=== PATIENT | male | born 1940 | race Caucasian/White ===

== ENCOUNTER 2017-10-10 10:40 | Inpatient (IN) | payer OTHER ==
[2017-10-10] MEDS ORDERED: DUONEB 0.5 MG/3 MG ONE (11:37)
[2017-10-10 11:40] VITALS: BMI 25.1
[2017-10-10] MEDS ORDERED: DUONEB 0.5 MG/3 MG NEB SCH (12:00)
--- NOTE | 2017-10-10 12:27 | RAD ---
Examination: Chest, PA and lateral views History: Pneumonia and cough SOB Findings: The heart is borderline enlarged with arteriosclerotic aorta. There are bilateral interstit ial infiltrates present. No consolidation, mass or pneumothorax is seen. Small pleural effusions are noted at the costophrenic sulci. Impression: Cardiac prominence with bilateral interstitial infiltrates and small pleural effusions. T he findings are most compatible with CHF and pulmonary edema although a multi lobar inflammatory proc ess could produce similar findings. Correlate clinically with follow-up. Reported By:
[2017-10-10 12:34] LABS: BASOPHILS % (AUTO) 0.7 % (0.2-1.0); EOSINOPHILS # (AUTO) 0.2 x10^3/uL (0.0-0.2); EOSINOPHILS % (AUTO) 2.7 % (0.9-2.9); HEMATOCRIT 30.2 % (42.0-54.0); HEMOGLOBIN 9.8 g/dL (13.5-18.0); LYMPHOCYTES # (AUTO) 1.5 X10^3/uL (1.3-2.9); LYMPHOCYTES % (AUTO) 21.1 % (21.0-51.0); MEAN CORPUSCULAR HEMOGLOBIN 27.8 pg (27.0-34.0); MEAN CORPUSCULAR HGB CONC 32.5 g/dL (33.0-35.0); MEAN CORPUSCULAR VOLUME 85.5 fL (80.0-100.0); MEAN PLATELET VOLUME 7.9 fL (7.4-11.0); MONOCYTES # (AUTO) 0.7 x10^3/uL (0.3-0.8); MONOCYTES % (AUTO) 9.4 % (0.0-13.0); NEUTROPHILS # (AUTO) 4.6 x10^3/uL (2.2-4.8); NEUTROPHILS % (AUTO) 66.1 % (42.0-75.0); PLATELET COUNT 214 X10^3/uL (150.0-450.0); RED BLOOD COUNT 3.54 X10^6/uL (4.7-6.0); RED CELL DISTRIBUTION WIDTH 16.5 % (11.6-16.5)
[2017-10-10 12:36] LABS: ALANINE AMINOTRANSFERASE 31 Units/L (12-78); ALBUMIN 3.5 g/dL (3.4-5.0); ALKALINE PHOSPHATASE 46 Units/L (46-116); ASPARTATE AMINO TRANSFERASE 25 Units/L (15-37); BLOOD UREA NITROGEN 23 mg/dL (7-18); CALCIUM 8.9 mg/dL (8.5-10.1); CARBON DIOXIDE 25.5 mmol/L (21-32); CHLORIDE 102 mmol/L (98-107); COR NA(FOR HYPERGLY) 138 mmol/L (136-145); CREATININE 1.14 mg/dL (0.70-1.30); SODIUM 136 mmol/L (136-145); TOTAL PROTEIN 7.4 g/dL (6.4-8.2); eGFR BLACK RACES > 60 (>60); eGFR NON BLACK RACES > 60 (>60)
[2017-10-10] MEDS: FORTAZ or TAZICEF INJ 1 GM in NS 50 ML IV + SPIKE MINIBAG* 50 ML IV SCH ×3 (13:04→21:00)
[2017-10-10] MEDS: LEVAQUIN PREMIX IV 750 MG 750 MG/150 ML BAG IV SCH (13:04)
[2017-10-10] MEDS: NS 1/2 1000 ML IV 1,000 ML IV SCH (13:04)
[2017-10-10] MEDS: TUSSIONEX PENNKINETIC SUSP PO PRN (13:09)
[2017-10-10] MEDS: MUCINEX DM PO SCH ×2 (13:14→20:21)
[2017-10-10] MEDS: DUONEB 0.5 MG/3 MG NEB SCH ×3 (15:38→20:00)
[2017-10-10] MEDS ORDERED: GLUCOPHAGE ONE (20:10)
[2017-10-10] MEDS: ZOCOR TAB 40 MG PO SCH (20:20)
[2017-10-10] MEDS: GLUCOPHAGE PO SCH (20:20)
[2017-10-10] MEDS: DIABETA PO SCH (21:00)
[2017-10-11] MEDS: DUONEB 0.5 MG/3 MG NEB SCH ×5 (00:51→20:23)
[2017-10-11] MEDS ORDERED: NS 1/2 1000 ML IV 1,000 ML IV ONE (05:37)
[2017-10-11] MEDS: DIABETA PO SCH ×3 (05:42→21:01)
[2017-10-11] MEDS: NS 1/2 1000 ML IV 1,000 ML IV SCH (05:42)
[2017-10-11] MEDS: FORTAZ or TAZICEF INJ 1 GM in NS 50 ML IV + SPIKE MINIBAG* 50 ML IV SCH ×3 (05:42→21:04)
[2017-10-11] MEDS: TUSSIONEX PENNKINETIC SUSP PO PRN (06:19)
[2017-10-11 06:21] LABS: BASOPHILS % (AUTO) 0.3 % (0.2-1.0); EOSINOPHILS # (AUTO) 0.1 x10^3/uL (0.0-0.2); EOSINOPHILS % (AUTO) 1.3 % (0.9-2.9); HEMATOCRIT 26.8 % (42.0-54.0); HEMOGLOBIN 8.9 g/dL (13.5-18.0); LYMPHOCYTES # (AUTO) 1.8 X10^3/uL (1.3-2.9); LYMPHOCYTES % (AUTO) 23.6 % (21.0-51.0); MEAN CORPUSCULAR HEMOGLOBIN 27.7 pg (27.0-34.0); MEAN CORPUSCULAR HGB CONC 33.4 g/dL (33.0-35.0); MEAN CORPUSCULAR VOLUME 82.9 fL (80.0-100.0); MEAN PLATELET VOLUME 7.9 fL (7.4-11.0); MONOCYTES # (AUTO) 0.8 x10^3/uL (0.3-0.8); MONOCYTES % (AUTO) 9.8 % (0.0-13.0); NEUTROPHILS # (AUTO) 5.1 x10^3/uL (2.2-4.8); PLATELET COUNT 208 X10^3/uL (150.0-450.0); RED BLOOD COUNT 3.23 X10^6/uL (4.7-6.0); RED CELL DISTRIBUTION WIDTH 16.3 % (11.6-16.5); WHITE BLOOD COUNT 7.8 X10^3/uL (3.6-10.0)
[2017-10-11 06:41] LABS: ALANINE AMINOTRANSFERASE 29 Units/L (12-78); ALBUMIN 3.2 g/dL (3.4-5.0); ALKALINE PHOSPHATASE 42 Units/L (46-116); ASPARTATE AMINO TRANSFERASE 20 Units/L (15-37); BLOOD UREA NITROGEN 18 mg/dL (7-18); CALCIUM 8.2 mg/dL (8.5-10.1); CARBON DIOXIDE 22.5 mmol/L (21-32); CHLORIDE 97 mmol/L (98-107); COR CA(FOR HYPOALB) 8.8 mg/dL (8.5-10.1); CREATININE 1.06 mg/dL (0.70-1.30); SODIUM 130 mmol/L (136-145); eGFR BLACK RACES > 60 (>60); eGFR NON BLACK RACES > 60 (>60)
[2017-10-11] MEDS ORDERED: GLUCOPHAGE ONE ×2 (08:05→20:26)
[2017-10-11] MEDS: GLUCOPHAGE PO SCH ×2 (08:13→20:57)
[2017-10-11] MEDS: LEVAQUIN PREMIX IV 750 MG 750 MG/150 ML BAG IV SCH (08:14)
[2017-10-11] MEDS: MUCINEX DM PO SCH ×2 (08:14→21:05)
[2017-10-11] MEDS: ZESTRIL TAB 10 MG PO SCH (08:14)
[2017-10-11] MEDS: LASIX IVP SCH ×2 (10:50→20:57)
[2017-10-11] MEDS: SNACK - Diabetic Appropriate PO SCH ×2 (10:50→21:06)
[2017-10-11] MEDS ORDERED: ZOFRAN INJ 4 MG VIAL IVP PRN (11:44)
--- NOTE | 2017-10-11 12:43 | PCM.PROG ---
Progress Note - Progress Note for Day of Date: 10/11/17 - Subjective Subjective: WAS ADMITTED FOR BRONCHOPNEUMONIA. A CHEST XRAY THAT WAS OBTAINED ON REPORTS THAT FINDINGS FROM CHEST XRAY ARE MOST COMPATIBLE WITH CHF AND PULMONARY EDEMA ALTHOUGH MULTI LOBAR INFLAMMATORY PROCESS COULD PRODUCE SIMILAR FINDINGS. TODAY, HE IS ALERT AND ORIENTED, SITTING UP IN BED ON MORNING ROUNDS. HE IS NOTED WITH COMPLAINTS OF NON-PRODUCTIVE COUGH AND SHORNTESS OF BREATH. ON EXAMINATION, HEART IS REGULAR IN RATE AND RHYTHM. HE IS NOTED TO BE UTILIZING OXYGEN VIA NASAL CANNULA. LUNGS ARE NOTED WITH SCATTERED WHEEZING AND RHONCHI BILATERALLY TO AUSCULTAION. ABDOMEN IS ROUND, SOFT, AND NON-TENDER WITH NORMAL BOWEL SOUNDS NOTED IN ALL QUADRANTS. GOOD RANGE OF MOTION IS NOTED IN ALL EXTREMITIES. THERE IS 1+ PITTING EDEMA NOTED TO BILATERAL LOWER EXTREMITIES. HIS VITAL SIGNS THIS MORNING ARE 98.6-96-20-97%-128/72. ABNORMAL LAB VALUES INCLUDE THE FOLLOWING: RBC 3.23, HGB 8.9, HCT 26.8, SODIUM 130, CHLORIDE 97, CALCIUM 8.2, IRON 21, ALK PHOS 42, BNP 567, ALBUMIN 3.2, A/G RATIO 0.8, VITAMIN B12 185. TODAY, WE WILL OBTAIN AN ECHOCARDIOGRAM. WE WILL DISCONTINUE IV FLUIDS AND RESTRICT PO FLUID INTAKE TO LESS THAN 1,000ML/DAY. WE WILL ORDER FOR HIM TO WEAR THE BIPAP. WE PLAN TO START LASIX 40MG IV Q12H. OTHERWISE, WE WILL FOLLOW UP WITH AM LABS AND CHEST XRAY AND CONTINUE TO MONITOR PATIENT. - Past Medical Family Social History Past Med/Fam/Surg Hx: No changes since H&P Allergies: Allergies No Known Drug Allergies Allergy (Verified 10/10/17 11:40) - Review of Systems ROS: No change since H&P - Vital Signs and I&O's Vital Signs: Temperature 98.1 F Pulse Rate [Left Brachial] 99 Pulse Rate 94 Respiratory Rate 24 Blood Pressure [Left Arm] 131/74 O2 Sat by Pulse Oximetry 93 Intake and Output: Intake & Output 10/09/17 10/10/17 10/11/17 10/12/17 11:59 11:59 11:59 11:59 Intake Total 3247 Balance 3247 - Physical Exam Oriented: Normal Eyes: Normal. negative: Blurred Vision, Diplopia, Discharge, Pain, Redness, Photophobia, Other Ear: Normal. negative: Right, Left, Swelling, Ecchymosis, Hemotypanum, Abrasion , Laceration Nose: Normal Throat: Dry Respiratory: Normal, Right, Left, Generalized, Wheezes, Rhonchi Cardiovascular: Edema (BILATERAL LOWER EXTREMITIES ) : Normal Auscultation: Bowel Sounds: Normal Palpation: Normal Tenderness: Normal Skin: Normal. negative: Decreased Turgur, Rash, Papular, Macular, Maculopapular , Vesicular, Pustular, Petechial, Red, Tender, Hot, Diaphoresis, Wound, Bruising , Ecchymosis, Other Musculoskeletal: Normal Psychiatric: Normal Mood Description: Calm Affect: Normal Speech Pattern: Clear, Appropriate - Laboratory and Diagnostics Result Diagrams: 10/11/17 05:21 10/11/17 05:21 Labs: 10/10/17 11:45 Sputum - Expectorated Sputum Sputum Culture - Preliminary 10/10/17 11:45 Sputum - Expectorated Sputum - Final Laboratory WBC 7.8 X10^3/uL (3.6-10.0) 10/11/17 05:21 RBC 3.23 X10^6/uL (4.7-6.0) L 10/11/17 05:21 Hgb 8.9 g/dL (13.5-18.0) L 10/11/17 05:21 Hct 26.8 % (42.0-54.0) L 10/11/17 05:21 MCV 82.9 fL (80.0-100.0) 10/11/17 05:21 MCH 27.7 pg (27.0-34.0) 10/11/17 05:21 MCHC 33.4 g/dL (33.0-35.0) 10/11/17 05:21 RDW 16.3 % (11.6-16.5) 10/11/17 05:21 Plt Count 208 X10^3/uL (150.0-450.0) 10/11/17 05:21 MPV 7.9 fL (7.4-11.0) 10/11/17 05:21 Neut % 65.0 % (42.0-75.0) 10/11/17 05:21 Lymph % 23.6 % (21.0-51.0) 10/11/17 05:21 [place] % 9.8 % (0.0-13.0) 10/11/17 05:21 Eos % 1.3 % (0.9-2.9) 10/11/17 05:21 Baso % 0.3 % (0.2-1.0) 10/11/17 05:21 Neut # 5.1 x10^3/uL (2.2-4.8) H 10/11/17 05:21 Lymph # 1.8 X10^3/uL (1.3-2.9) 10/11/17 05:21 [place] # 0.8 x10^3/uL (0.3-0.8) 10/11/17 05:21 Eos # 0.1 x10^3/uL (0.0-0.2) 10/11/17 05:21 Baso # 0.0 X10^3/uL (0.0-0.1) 10/11/17 05:21 Absolute Nucleated RBC 0.0 /100WBC 10/11/17 05:21 Sodium 130 mmol/L (136-145) L 10/11/17 05:21 Corrected Sodium TNP 10/11/17 05:21 Potassium 4.2 mmol/L (3.5-5.1) 10/11/17 05:21 Chloride 97 mmol/L (98-107) L 10/11/17 05:21 Carbon Dioxide 22.5 mmol/L (21-32) 10/11/17 05:21 BUN 18 mg/dL (7-18) 10/11/17 05:21 Creatinine 1.06 mg/dL (0.70-1.30) 10/11/17 05:21 Est GFR (MDRD) Af Amer > 60 (>60) 10/11/17 05:21 Est GFR (MDRD) Non-Af > 60 (>60) 10/11/17 05:21 Glucose 95 mg/dL (65-99) 10/11/17 05:21 POC Glucose (mg/dL) 184 mg/dL (65-99) H 10/11/17 10:52 Calcium 8.2 mg/dL (8.5-10.1) L 10/11/17 05:21 Corrected Calcium 8.8 mg/dL (8.5-10.1) 10/11/17 05:21 Iron 21 ug/dL (50-175) L 10/11/17 05:21 TIBC 294 ug/dL (250-450) 10/11/17 05:21 Transferrin 227 mg/dL (202-364) 10/11/17 05:21 Ferritin 147 ng/mL (26-388) 10/11/17 05:21 Total Bilirubin 0.70 mg/dL (0.2-1.0) 10/11/17 05:21 AST 20 Units/L (15-37) 10/11/17 05:21 ALT 29 Units/L (12-78) 10/11/17 05:21 Alkaline Phosphatase 42 Units/L (46-116) L 10/11/17 05:21 B-Natriuretic Peptide 567 pg/mL (0-79) H* 10/11/17 05:21 Total Protein 7.0 g/dL (6.4-8.2) 10/11/17 05:21 Albumin 3.2 g/dL (3.4-5.0) L 10/11/17 05:21 Globulin 3.8 g/dL (2.5-4.5) 10/11/17 05:21 Albumin/Globulin Ratio 0.8 Ratio (1.1-2.1) L 10/11/17 05:21 Vitamin B12 185 pg/mL (193-986) L 10/11/17 05:21 Folate 15.6 ng/mL (>8.6) 10/11/17 05:21 - Plan (1) Bronchopneumonia Status: Acute Plan: CONTINUE IV ANTIBIOTICS, CONTINUE NEB TX, MONITOR LABS AND CHEST XRAY (2) Acute on chronic congestive heart failure Status: Acute Qualifiers: Congestive heart failure type: unspecified congestive heart failure type Qualified Code(s): I50.9 - Heart failure, unspecified Plan: OBTAIN ECHO, LASIX 40MG IV Q12H, MONITOR LABS AND CHEST XRAY
--- NOTE | 2017-10-11 20:20 | DR.UPDATE ---
H&P Update History and Physical Update: WAS SEEN IN THE OFFICE ON 10/10/17. A H&P WAS COMPLETED PRIOR TO ADMISSION. PATIENT HAS BEEN SEEN AND EXAMINED WITH NO CHANGES NOTED TO H&P. Changes noted: NO Yes with the following:
[2017-10-11] MEDS: ZOCOR TAB 40 MG PO SCH (20:57)
[2017-10-11] MEDS: MAALOX or MYLANTA PO PRN (21:05)
[2017-10-12] MEDS: DUONEB 0.5 MG/3 MG NEB SCH ×6 (00:45→21:31)
[2017-10-12] MEDS ORDERED: MAALOX or MYLANTA ONE (05:18)
[2017-10-12] MEDS: MAALOX or MYLANTA PO PRN ×2 (05:21→11:25)
[2017-10-12 05:41] LABS: BASOPHILS % (AUTO) 0.2 % (0.2-1.0); EOSINOPHILS % (AUTO) 0.5 % (0.9-2.9); HEMATOCRIT 27.2 % (42.0-54.0); HEMOGLOBIN 9.4 g/dL (13.5-18.0); LYMPHOCYTES # (AUTO) 1.7 X10^3/uL (1.3-2.9); LYMPHOCYTES % (AUTO) 20.7 % (21.0-51.0); MEAN CORPUSCULAR HGB CONC 34.5 g/dL (33.0-35.0); MEAN CORPUSCULAR VOLUME 81.3 fL (80.0-100.0); MEAN PLATELET VOLUME 7.5 fL (7.4-11.0); MONOCYTES # (AUTO) 0.8 x10^3/uL (0.3-0.8); MONOCYTES % (AUTO) 10.4 % (0.0-13.0); NEUTROPHILS # (AUTO) 5.4 x10^3/uL (2.2-4.8); NEUTROPHILS % (AUTO) 68.2 % (42.0-75.0); PLATELET COUNT 218 X10^3/uL (150.0-450.0); RED BLOOD COUNT 3.34 X10^6/uL (4.7-6.0)
[2017-10-12] MEDS ORDERED: NS 250 ML IV 250 ML IV PRN (05:41)
--- NOTE | 2017-10-12 05:46 | RAD ---
Chest, AP portable Indication: Shortness of breath Comparison: 10/10/2017 Findings: Borderline cardiac silhouette enlargement is unchanged. Basilar interstitial thickening is improved from prior. No dense infiltrate or large effusion. Impression: Improving interstitial edema. Reported By:
[2017-10-12] MEDS ORDERED: NS 250 ML IV 250 ML IV ONE (05:52)
[2017-10-12] MEDS: FORTAZ or TAZICEF INJ 1 GM in NS 50 ML IV + SPIKE MINIBAG* 50 ML IV SCH ×3 (05:57→21:45)
[2017-10-12] MEDS: DIABETA PO SCH ×3 (05:57→21:47)
[2017-10-12 06:03] LABS: ALANINE AMINOTRANSFERASE 30 Units/L (12-78); ALBUMIN 3.2 g/dL (3.4-5.0); ALKALINE PHOSPHATASE 46 Units/L (46-116); ASPARTATE AMINO TRANSFERASE 26 Units/L (15-37); BLOOD UREA NITROGEN 22 mg/dL (7-18); CALCIUM 8.3 mg/dL (8.5-10.1); CARBON DIOXIDE 26.4 mmol/L (21-32); CHLORIDE 88 mmol/L (98-107); COR CA(FOR HYPOALB) 8.9 mg/dL (8.5-10.1); TOTAL PROTEIN 7.1 g/dL (6.4-8.2); eGFR BLACK RACES > 60 (>60); eGFR NON BLACK RACES > 60 (>60)
[2017-10-12 06:08] LABS: SODIUM 124 mmol/L (136-145)
[2017-10-12 06:38] LABS: B-TYPE NATRIURETIC PEPTIDE 873 pg/mL (0-79)
[2017-10-12] MEDS ORDERED: GLUCOPHAGE ONE (08:49)
[2017-10-12] MEDS: LEVAQUIN PREMIX IV 750 MG 750 MG/150 ML BAG IV SCH (09:00)
[2017-10-12] MEDS: ZESTRIL TAB 10 MG PO SCH (09:00)
[2017-10-12] MEDS: MUCINEX DM PO SCH ×2 (09:01→21:43)
[2017-10-12] MEDS: GLUCOPHAGE PO SCH ×2 (09:01→21:46)
[2017-10-12] MEDS ORDERED: LANOXIN PO ONE (09:51)
[2017-10-12] MEDS: HEMOCYTE-PLUS PO SCH (10:26)
[2017-10-12] MEDS: ALDACTONE TAB 25 MG PO SCH (10:26)
[2017-10-12 10:49] LABS: ABG ALLEN TEST POS; ABG BASE EXCESS 2.6 mmol/L (-2.0-2.0); ABG HCO3 26.2 mmol/L (22-26)
--- NOTE | 2017-10-12 13:05 | PCM.PROG ---
Progress Note - Progress Note for Day of Date: 10/12/17 - Subjective Subjective: WAS ADMITTED FOR BRONCHOPNEUMONIA AND CONGESTIVE HEART FAILURE. TODAY, HE IS ALERT AND ORIENTED, SITTING UP ON SIDE OF BED ON MORNING ROUNDS. HE IS CURRENTLY RECEIVING A BREATHING TREATMENT. HE CONTINUES WITH COMPLAINTS OF NON-PRODUCTIVE COUGH AND SHORNTESS OF BREATH. ON EXAMINATION, HEART IS REGULAR IN RATE AND RHYTHM. HE IS NOTED TO BE UTILIZING OXYGEN VIA NASAL CANNULA. LUNGS CONTINUE WITH SCATTERED WHEEZING AND RHONCHI BILATERALLY TO AUSCULTAION. ABDOMEN IS ROUND, SOFT, AND NON-TENDER WITH NORMAL BOWEL SOUNDS NOTED IN ALL QUADRANTS. GOOD RANGE OF MOTION IS NOTED IN ALL EXTREMITIES. 1+ PITTING EDEMA REMAINS TO BILATERAL LOWER EXTREMITIES. HIS VITAL SIGNS THIS MORNING ARE 97.7-98-20-95%-109/70. ABNORMAL LAB VALUES INCLUDE THE FOLLOWING: RBC 3.34, HGB 9.4, HCT 27.2, SODIUM 124, CHLORIDE 88, BUN 22, CALCIUM 8.3,BNP 873, ALBUMIN 3.2, A/G RATIO 0.8. PRELIMINARY BLOOD CULTURES REPORT NO GROWTH. SPUTUM CULTURE REPORTS NORMAL ARIELLE WITH GROWTH OF YEAST. AN ABG REPORTED PH 7.470, HC03 23.2, PC02 36, BASE EXCESS 2.6. WE OBTAINED AN ECHOCARDIOGRAM YESTERDAY. IT REPORTED AND EJECTION FRACTION OF 33%. TODAYS CHEST XRAY REPORTED IMPROVING INTERSTITIAL EDEMA. WE WILL CONTINUE LASIX 40MG IV BID, START DIGOXIN 0.25MG X 1 DOSE TODAY, THEN DIGOXIN 0.125MG DAILY STARTING TOMORROW, AND HEMOCYTE 1 CAPSULE DAILY. OTHERWISE, WE WILL FOLLOW UP WITH AM LABS AND CHEST XRAY AND CONTINUE TO MONITOR PATIENT. - Past Medical Family Social History Past Med/Fam/Surg Hx: No changes since H&P Allergies: Allergies No Known Drug Allergies Allergy (Verified 10/10/17 11:40) - Review of Systems ROS: No change since H&P - Vital Signs and I&O's Vital Signs: Temperature 97 F Pulse Rate [Left Brachial] 94 Pulse Rate 100 Respiratory Rate 18 Blood Pressure [Left Arm] 125/65 O2 Sat by Pulse Oximetry 100 Intake and Output: Intake & Output 10/10/17 10/11/17 10/12/17 10/13/17 11:59 11:59 11:59 11:59 Intake Total 3247 2619 Output Total 2700 Balance 3247 -81 - Physical Exam Oriented: Normal Eyes: Normal. negative: Blurred Vision, Diplopia, Discharge, Pain, Redness, Photophobia, Other Ear: Normal. negative: Right, Left, Swelling, Ecchymosis, Hemotypanum, Abrasion , Laceration Nose: Normal Throat: Dry Respiratory: Normal, Right, Left, Generalized, Wheezes, Rhonchi Cardiovascular: Edema (BILATERAL LOWER EXTREMITIES ) : Normal Auscultation: Bowel Sounds: Normal Palpation: Normal Tenderness: Normal Skin: Normal. negative: Decreased Turgur, Rash, Papular, Macular, Maculopapular , Vesicular, Pustular, Petechial, Red, Tender, Hot, Diaphoresis, Wound, Bruising , Ecchymosis, Other Musculoskeletal: Normal Psychiatric: Normal Mood Description: Calm Affect: Normal Speech Pattern: Clear, Appropriate - Laboratory and Diagnostics Result Diagrams: 10/12/17 05:20 10/12/17 05:20 Labs: 10/10/17 11:58 Blood Blood Culture - Preliminary 10/10/17 12:05 Blood Blood Culture - Preliminary 10/10/17 11:45 Sputum - Expectorated Sputum Sputum Culture - Final 10/10/17 11:45 Sputum - Expectorated Sputum - Final Laboratory WBC 8.0 X10^3/uL (3.6-10.0) 10/12/17 05:20 RBC 3.34 X10^6/uL (4.7-6.0) L 10/12/17 05:20 Hgb 9.4 g/dL (13.5-18.0) L 10/12/17 05:20 Hct 27.2 % (42.0-54.0) L 10/12/17 05:20 MCV 81.3 fL (80.0-100.0) 10/12/17 05:20 MCH 28.0 pg (27.0-34.0) 10/12/17 05:20 MCHC 34.5 g/dL (33.0-35.0) 10/12/17 05:20 RDW 16.0 % (11.6-16.5) 10/12/17 05:20 Plt Count 218 X10^3/uL (150.0-450.0) 10/12/17 05:20 MPV 7.5 fL (7.4-11.0) 10/12/17 05:20 Neut % 68.2 % (42.0-75.0) 10/12/17 05:20 Lymph % 20.7 % (21.0-51.0) L 10/12/17 05:20 [place] % 10.4 % (0.0-13.0) 10/12/17 05:20 Eos % 0.5 % (0.9-2.9) L 10/12/17 05:20 Baso % 0.2 % (0.2-1.0) 10/12/17 05:20 Neut # 5.4 x10^3/uL (2.2-4.8) H 10/12/17 05:20 Lymph # 1.7 X10^3/uL (1.3-2.9) 10/12/17 05:20 [place] # 0.8 x10^3/uL (0.3-0.8) 10/12/17 05:20 Eos # 0.0 x10^3/uL (0.0-0.2) 10/12/17 05:20 Baso # 0.0 X10^3/uL (0.0-0.1) 10/12/17 05:20 Absolute Nucleated RBC 0.0 /100WBC 10/12/17 05:20 Sample Site Rrad 10/12/17 09:52 ABG pH 7.470 (7.35-7.45) H 10/12/17 09:52 ABG pCO2 36.0 mmHg (35.0-45.0) 10/12/17 09:52 ABG pO2 88.0 mmHg (80.0-100.0) 10/12/17 09:52 ABG HCO3 26.2 mmol/L (22-26) H 10/12/17 09:52 ABG O2 Saturation 97.0 % (90-100) 10/12/17 09:52 ABG Base Excess 2.6 mmol/L (-2.0-2.0) H 10/12/17 09:52 David Test Pos 10/12/17 09:52 A-a Gradient 17.0 mmHg 10/12/17 09:52 FiO2 21.000 10/12/17 09:52 Blood Gas Comments Kenyon well 10/12/17 09:52 Sodium 124 mmol/L (136-145) L* 10/12/17 05:20 Corrected Sodium TNP 10/12/17 05:20 Potassium 4.3 mmol/L (3.5-5.1) 10/12/17 05:20 Chloride 88 mmol/L (98-107) L 10/12/17 05:20 Carbon Dioxide 26.4 mmol/L (21-32) 10/12/17 05:20 BUN 22 mg/dL (7-18) H 10/12/17 05:20 Creatinine 1.20 mg/dL (0.70-1.30) 10/12/17 05:20 Est GFR (MDRD) Af Amer > 60 (>60) 10/12/17 05:20 Est GFR (MDRD) Non-Af > 60 (>60) 10/12/17 05:20 Glucose 97 mg/dL (65-99) 10/12/17 05:20 POC Glucose (mg/dL) 56 mg/dL (65-99) L 10/12/17 11:22 Calcium 8.3 mg/dL (8.5-10.1) L 10/12/17 05:20 Corrected Calcium 8.9 mg/dL (8.5-10.1) 10/12/17 05:20 Iron 21 ug/dL (50-175) L 10/11/17 05:21 TIBC 294 ug/dL (250-450) 10/11/17 05:21 Transferrin 227 mg/dL (202-364) 10/11/17 05:21 Ferritin 147 ng/mL (26-388) 10/11/17 05:21 Total Bilirubin 0.80 mg/dL (0.2-1.0) 10/12/17 05:20 AST 26 Units/L (15-37) 10/12/17 05:20 ALT 30 Units/L (12-78) 10/12/17 05:20 Alkaline Phosphatase 46 Units/L (46-116) 10/12/17 05:20 B-Natriuretic Peptide 873 pg/mL (0-79) H* 10/12/17 05:20 Total Protein 7.1 g/dL (6.4-8.2) 10/12/17 05:20 Albumin 3.2 g/dL (3.4-5.0) L 10/12/17 05:20 Globulin 3.9 g/dL (2.5-4.5) 10/12/17 05:20 Albumin/Globulin Ratio 0.8 Ratio (1.1-2.1) L 10/12/17 05:20 Vitamin B12 185 pg/mL (193-986) L 10/11/17 05:21 Folate 15.6 ng/mL (>8.6) 10/11/17 05:21 - Plan (1) Bronchopneumonia Status: Acute Plan: CONTINUE IV ANTIBIOTICS, CONTINUE NEB TX, MONITOR LABS AND CHEST XRAY (2) Acute on chronic congestive heart failure Status: Acute Qualifiers: Congestive heart failure type: unspecified congestive heart failure type Qualified Code(s): I50.9 - Heart failure, unspecified Plan: ALDACTONE 25MG DAILY, CONTINUE LISINOPRIL 10MG DAILY, DIGOXIN 0.25MG X 1 THEN DIGOXIN 0.125MG DAILY, LASIX 40MG IV Q12H, MONITOR LABS AND CHEST XRAY (3) Anemia Status: Acute Qualifiers: Anemia type: iron deficiency Iron deficiency anemia type: unspecified iron deficiency Qualified Code(s): D50.9 - Iron deficiency anemia, unspecified Plan: HEMOCYTE 1 CAPSULE DAILY, CONTINUE TO MONITOR
[2017-10-12] MEDS: LASIX IVP SCH ×2 (13:39→21:46)
[2017-10-12] MEDS: PROTONIX INJ 40 MG VIAL IVP SCH ×2 (14:23→21:46)
[2017-10-12] MEDS: SNACK - Diabetic Appropriate PO SCH (20:18)
[2017-10-12] MEDS: ZOCOR TAB 40 MG PO SCH (21:43)
[2017-10-13] MEDS: DUONEB 0.5 MG/3 MG NEB SCH ×5 (00:58→20:41)
[2017-10-13] MEDS: DIABETA PO SCH ×3 (06:04→21:13)
[2017-10-13] MEDS: FORTAZ or TAZICEF INJ 1 GM in NS 50 ML IV + SPIKE MINIBAG* 50 ML IV SCH ×3 (06:05→21:22)
[2017-10-13 06:09] LABS: BASOPHILS % (AUTO) 0.2 % (0.2-1.0); EOSINOPHILS % (AUTO) 0.4 % (0.9-2.9); HEMATOCRIT 27.9 % (42.0-54.0); HEMOGLOBIN 9.7 g/dL (13.5-18.0); LYMPHOCYTES # (AUTO) 1.4 X10^3/uL (1.3-2.9); LYMPHOCYTES % (AUTO) 17.5 % (21.0-51.0); MEAN CORPUSCULAR HEMOGLOBIN 27.9 pg (27.0-34.0); MEAN CORPUSCULAR HGB CONC 34.7 g/dL (33.0-35.0); MEAN CORPUSCULAR VOLUME 80.3 fL (80.0-100.0); MEAN PLATELET VOLUME 7.8 fL (7.4-11.0); MONOCYTES # (AUTO) 0.8 x10^3/uL (0.3-0.8); MONOCYTES % (AUTO) 9.5 % (0.0-13.0); NEUTROPHILS # (AUTO) 5.8 x10^3/uL (2.2-4.8); NEUTROPHILS % (AUTO) 72.4 % (42.0-75.0); PLATELET COUNT 243 X10^3/uL (150.0-450.0); RED BLOOD COUNT 3.47 X10^6/uL (4.7-6.0); RED CELL DISTRIBUTION WIDTH 16.1 % (11.6-16.5)
--- NOTE | 2017-10-13 06:09 | RAD ---
Examination: Portable AP chest History: SOB Comparison reference 10/12/2017 Findings: Continued normal heart size. Slight further improvement in the vascular congestion and inte rstitial prominence. No new abnormality noted. Impression: Additional radiographic improvement. No acute process now demonstrated. Reported By:
[2017-10-13] MEDS: MAALOX or MYLANTA PO PRN (06:14)
[2017-10-13 06:19] LABS: ALANINE AMINOTRANSFERASE 24 Units/L (12-78); ALKALINE PHOSPHATASE 41 Units/L (46-116); ASPARTATE AMINO TRANSFERASE 27 Units/L (15-37); BLOOD UREA NITROGEN 23 mg/dL (7-18); CALCIUM 8.3 mg/dL (8.5-10.1); CARBON DIOXIDE 26.8 mmol/L (21-32); CHLORIDE 88 mmol/L (98-107); COR CA(FOR HYPOALB) 9.1 mg/dL (8.5-10.1); CREATININE 1.26 mg/dL (0.70-1.30); DIGOXIN < 0.30 ng/mL (0.9-2); TOTAL PROTEIN 7.1 g/dL (6.4-8.2); eGFR BLACK RACES > 60 (>60); eGFR NON BLACK RACES 59 (>60)
[2017-10-13 06:22] LABS: SODIUM 125 mmol/L (136-145)
[2017-10-13] MEDS: ALDACTONE TAB 25 MG PO SCH (09:17)
[2017-10-13] MEDS: GLUCOPHAGE PO SCH ×2 (09:18→21:13)
[2017-10-13] MEDS: HEMOCYTE-PLUS PO SCH (09:18)
[2017-10-13] MEDS: LANOXIN PO SCH (09:19)
[2017-10-13] MEDS: MUCINEX DM PO SCH ×2 (09:21→21:14)
[2017-10-13] MEDS: LASIX IVP SCH ×2 (09:21→21:13)
[2017-10-13] MEDS: LEVAQUIN PREMIX IV 750 MG 750 MG/150 ML BAG IV SCH (09:21)
[2017-10-13] MEDS: PROTONIX INJ 40 MG VIAL IVP SCH ×2 (09:21→21:13)
[2017-10-13] MEDS: ZESTRIL TAB 10 MG PO SCH (09:25)
[2017-10-13] MEDS ORDERED: ARTIFICIAL TEARS DROPS AFFEYE PRN (19:52)
[2017-10-13] MEDS ORDERED: GLUCOPHAGE ONE (20:43)
[2017-10-13] MEDS: ZOCOR TAB 40 MG PO SCH (21:13)
[2017-10-13] MEDS: TUSSIONEX PENNKINETIC SUSP PO PRN (21:13)
[2017-10-13] MEDS: SNACK - Diabetic Appropriate PO SCH (21:22)
--- NOTE | 2017-10-13 22:03 | PCM.PROG ---
Progress Note - Progress Note for Day of Date: 10/13/17 - Subjective Subjective: WAS ADMITTED FOR BRONCHOPNEUMONIA AND CONGESTIVE HEART FAILURE. TODAY, HE IS ALERT AND ORIENTED, SITTING UP ON SIDE OF BED ON MORNING ROUNDS. HE CONTINUES WITH COMPLAINTS OF NON-PRODUCTIVE COUGH, SHORNTESS OF BREATH, AND GENERALIZED WEAKNESS. ON EXAMINATION, HEART IS REGULAR IN RATE AND RHYTHM. HE IS NOTED TO BE UTILIZING OXYGEN VIA NASAL CANNULA. LUNGS CONTINUE WITH SCATTERED WHEEZING AND RHONCHI BILATERALLY TO AUSCULTAION. ABDOMEN IS ROUND , SOFT, AND NON-TENDER WITH NORMAL BOWEL SOUNDS NOTED IN ALL QUADRANTS. GOOD RANGE OF MOTION IS NOTED IN ALL EXTREMITIES. 1+ PITTING EDEMA REMAINS TO BILATERAL LOWER EXTREMITIES. HIS VITAL SIGNS THIS MORNING ARE 97.8-83-20-99%-100 /57. ABNORMAL LAB VALUES INCLUDE THE FOLLOWING: RBC 3.47, HGB 9.7, HCT 27.9, SODIUM 125, CHLORIDE 88, BUN 23, GLUCOSE 107, CALCIUM 8.3, ALK PHOS 41, ALBUMIN 3.0. PRELIMINARY BLOOD CULTURES CONTINUE TO REPORT NO GROWTH. SPUTUM CULTURE REPORTS NORMAL ARIELLE WITH GROWTH OF YEAST. TODAYS CHEST XRAY REPORTED ADDITIONAL RADIOGRAPHIC IMPROVEMENT. NO ACUTE PROCESS NOW DEMONSTRATED. TODAY, WE WILL CONTINUE WITH CURRENT PLAN OF CARE. WE WILL FOLLOW UP WITH AM LABS AND CHEST XRAY AND CONTINUE TO MONITOR PATIENT. - Past Medical Family Social History Past Med/Fam/Surg Hx: No changes since H&P Allergies: Allergies No Known Drug Allergies Allergy (Verified 10/10/17 11:40) - Review of Systems ROS: No change since H&P - Vital Signs and I&O's Vital Signs: Temperature 97.9 F Pulse Rate [Left Brachial] 94 Pulse Rate 98 Respiratory Rate 20 Blood Pressure [Left Arm] 113/65 O2 Sat by Pulse Oximetry 99 Intake and Output: Intake & Output 10/11/17 10/12/17 10/13/17 10/14/17 11:59 11:59 11:59 11:59 Intake Total 3247 2619 1044 340 Output Total 2700 700 Balance 3247 -81 344 340 - Physical Exam Oriented: Normal Eyes: Normal. negative: Blurred Vision, Diplopia, Discharge, Pain, Redness, Photophobia, Other Ear: Normal. negative: Right, Left, Swelling, Ecchymosis, Hemotypanum, Abrasion , Laceration Nose: Normal Throat: Normal Respiratory: Normal, Right, Left, Generalized, Wheezes, Rhonchi Cardiovascular: Edema (BILATERAL LOWER EXTREMITIES ) : Normal Auscultation: Bowel Sounds: Normal Palpation: Normal Tenderness: Normal Skin: Normal. negative: Decreased Turgur, Rash, Papular, Macular, Maculopapular , Vesicular, Pustular, Petechial, Red, Tender, Hot, Diaphoresis, Wound, Bruising , Ecchymosis, Other Musculoskeletal: Normal Psychiatric: Normal Mood Description: Calm Affect: Normal Speech Pattern: Clear, Appropriate - Laboratory and Diagnostics Result Diagrams: 10/13/17 05:25 10/13/17 05:25 Labs: 10/10/17 11:58 Blood Blood Culture - Preliminary 10/10/17 12:05 Blood Blood Culture - Preliminary 10/10/17 11:45 Sputum - Expectorated Sputum Sputum Culture - Final 10/10/17 11:45 Sputum - Expectorated Sputum - Final Laboratory WBC 8.0 X10^3/uL (3.6-10.0) 10/13/17 05:25 RBC 3.47 X10^6/uL (4.7-6.0) L 10/13/17 05:25 Hgb 9.7 g/dL (13.5-18.0) L 10/13/17 05:25 Hct 27.9 % (42.0-54.0) L 10/13/17 05:25 MCV 80.3 fL (80.0-100.0) 10/13/17 05:25 MCH 27.9 pg (27.0-34.0) 10/13/17 05:25 MCHC 34.7 g/dL (33.0-35.0) 10/13/17 05:25 RDW 16.1 % (11.6-16.5) 10/13/17 05:25 Plt Count 243 X10^3/uL (150.0-450.0) 10/13/17 05:25 MPV 7.8 fL (7.4-11.0) 10/13/17 05:25 Neut % 72.4 % (42.0-75.0) 10/13/17 05:25 Lymph % 17.5 % (21.0-51.0) L 10/13/17 05:25 [place] % 9.5 % (0.0-13.0) 10/13/17 05:25 Eos % 0.4 % (0.9-2.9) L 10/13/17 05:25 Baso % 0.2 % (0.2-1.0) 10/13/17 05:25 Neut # 5.8 x10^3/uL (2.2-4.8) H 10/13/17 05:25 Lymph # 1.4 X10^3/uL (1.3-2.9) 10/13/17 05:25 Kimble # 0.8 x10^3/uL (0.3-0.8) 10/13/17 05:25 Eos # 0.0 x10^3/uL (0.0-0.2) 10/13/17 05:25 Baso # 0.0 X10^3/uL (0.0-0.1) 10/13/17 05:25 Absolute Nucleated RBC 0.0 /100WBC 10/13/17 05:25 Sample Site Rrad 10/12/17 09:52 ABG pH 7.470 (7.35-7.45) H 10/12/17 09:52 ABG pCO2 36.0 mmHg (35.0-45.0) 10/12/17 09:52 ABG pO2 88.0 mmHg (80.0-100.0) 10/12/17 09:52 ABG HCO3 26.2 mmol/L (22-26) H 10/12/17 09:52 ABG O2 Saturation 97.0 % (90-100) 10/12/17 09:52 ABG Base Excess 2.6 mmol/L (-2.0-2.0) H 10/12/17 09:52 David Test Pos 10/12/17 09:52 A-a Gradient 17.0 mmHg 10/12/17 09:52 FiO2 21.000 10/12/17 09:52 Blood Gas Comments Kenyon well 10/12/17 09:52 Sodium 125 mmol/L (136-145) L* 10/13/17 05:25 Corrected Sodium TNP 10/13/17 05:25 Potassium 3.7 mmol/L (3.5-5.1) 10/13/17 05:25 Chloride 88 mmol/L (98-107) L 10/13/17 05:25 Carbon Dioxide 26.8 mmol/L (21-32) 10/13/17 05:25 BUN 23 mg/dL (7-18) H 10/13/17 05:25 Creatinine 1.26 mg/dL (0.70-1.30) 10/13/17 05:25 Est GFR (MDRD) Af Amer > 60 (>60) 10/13/17 05:25 Est GFR (MDRD) Non-Af 59 (>60) 10/13/17 05:25 Glucose 107 mg/dL (65-99) H 10/13/17 05:25 POC Glucose (mg/dL) 191 mg/dL (65-99) H 10/13/17 20:19 Calcium 8.3 mg/dL (8.5-10.1) L 10/13/17 05:25 Corrected Calcium 9.1 mg/dL (8.5-10.1) 10/13/17 05:25 Iron 21 ug/dL (50-175) L 10/11/17 05:21 TIBC 294 ug/dL (250-450) 10/11/17 05:21 Transferrin 227 mg/dL (202-364) 10/11/17 05:21 Ferritin 147 ng/mL (26-388) 10/11/17 05:21 Total Bilirubin 0.50 mg/dL (0.2-1.0) 10/13/17 05:25 AST 27 Units/L (15-37) 10/13/17 05:25 ALT 24 Units/L (12-78) 10/13/17 05:25 Alkaline Phosphatase 41 Units/L (46-116) L 10/13/17 05:25 B-Natriuretic Peptide 873 pg/mL (0-79) H* 10/12/17 05:20 Total Protein 7.1 g/dL (6.4-8.2) 10/13/17 05:25 Albumin 3.0 g/dL (3.4-5.0) L 10/13/17 05:25 Globulin 4.1 g/dL (2.5-4.5) 10/13/17 05:25 Albumin/Globulin Ratio 0.7 Ratio (1.1-2.1) L 10/13/17 05:25 Vitamin B12 185 pg/mL (193-986) L 10/11/17 05:21 Folate 15.6 ng/mL (>8.6) 10/11/17 05:21 Digoxin < 0.30 ng/mL (0.9-2) L 10/13/17 05:25 - Plan (1) Bronchopneumonia Status: Acute Plan: CONTINUE IV ANTIBIOTICS, CONTINUE NEB TX, MONITOR LABS AND CHEST XRAY (2) Acute on chronic congestive heart failure Status: Acute Qualifiers: Congestive heart failure type: unspecified congestive heart failure type Qualified Code(s): I50.9 - Heart failure, unspecified Plan: ALDACTONE 25MG DAILY, CONTINUE LISINOPRIL 10MG DAILY, DIGOXIN 0.25MG X 1 THEN DIGOXIN 0.125MG DAILY, LASIX 40MG IV Q12H, MONITOR LABS AND CHEST XRAY (3) Anemia Status: Acute Qualifiers: Anemia type: iron deficiency Iron deficiency anemia type: unspecified iron deficiency Qualified Code(s): D50.9 - Iron deficiency anemia, unspecified Plan: HEMOCYTE 1 CAPSULE DAILY, CONTINUE TO MONITOR
[2017-10-14] MEDS: DUONEB 0.5 MG/3 MG NEB SCH ×3 (01:18→08:39)
[2017-10-14 04:46] LABS: BASOPHILS % (AUTO) 0.3 % (0.2-1.0); EOSINOPHILS # (AUTO) 0.1 x10^3/uL (0.0-0.2); EOSINOPHILS % (AUTO) 1.4 % (0.9-2.9); HEMATOCRIT 30.1 % (42.0-54.0); HEMOGLOBIN 10.1 g/dL (13.5-18.0); LYMPHOCYTES # (AUTO) 2.1 X10^3/uL (1.3-2.9); LYMPHOCYTES % (AUTO) 22.2 % (21.0-51.0); MEAN CORPUSCULAR HEMOGLOBIN 27.2 pg (27.0-34.0); MEAN CORPUSCULAR HGB CONC 33.7 g/dL (33.0-35.0); MEAN CORPUSCULAR VOLUME 80.9 fL (80.0-100.0); MEAN PLATELET VOLUME 7.9 fL (7.4-11.0); MONOCYTES # (AUTO) 1.1 x10^3/uL (0.3-0.8); MONOCYTES % (AUTO) 11.3 % (0.0-13.0); NEUTROPHILS # (AUTO) 6.1 x10^3/uL (2.2-4.8); NEUTROPHILS % (AUTO) 64.8 % (42.0-75.0); PLATELET COUNT 280 X10^3/uL (150.0-450.0); RED BLOOD COUNT 3.72 X10^6/uL (4.7-6.0); RED CELL DISTRIBUTION WIDTH 16.1 % (11.6-16.5); WHITE BLOOD COUNT 9.5 X10^3/uL (3.6-10.0)
[2017-10-14 04:58] LABS: ALANINE AMINOTRANSFERASE 25 Units/L (12-78); ALBUMIN 3.2 g/dL (3.4-5.0); ALKALINE PHOSPHATASE 43 Units/L (46-116); ASPARTATE AMINO TRANSFERASE 21 Units/L (15-37); BLOOD UREA NITROGEN 16 mg/dL (7-18); CALCIUM 8.7 mg/dL (8.5-10.1); CARBON DIOXIDE 32.8 mmol/L (21-32); CHLORIDE 94 mmol/L (98-107); COR CA(FOR HYPOALB) 9.3 mg/dL (8.5-10.1); CREATININE 1.18 mg/dL (0.70-1.30); SODIUM 134 mmol/L (136-145); TOTAL PROTEIN 7.3 g/dL (6.4-8.2); eGFR BLACK RACES > 60 (>60); eGFR NON BLACK RACES > 60 (>60)
[2017-10-14] MEDS: FORTAZ or TAZICEF INJ 1 GM in NS 50 ML IV + SPIKE MINIBAG* 50 ML IV SCH (06:19)
[2017-10-14] MEDS: DIABETA PO SCH (06:19)
--- NOTE | 2017-10-14 06:33 | RAD ---
Examination: Portable AP chest History: Cough and wheezing Comparison reference 10/13/2017 Findings: Stable heart size with no interval change in appearance of the lungs or pleural spaces. Mil d central vascular prominence and interstitial increase. No evidence for developing consolidation, pn eumothorax or pleural fluid. Impression: No change since 10/13/2017 Reported By:
[2017-10-14] MEDS ORDERED: GLUCOPHAGE ONE (09:02)
[2017-10-14] MEDS: ZESTRIL TAB 10 MG PO SCH (09:50)
[2017-10-14] MEDS: MUCINEX DM PO SCH (09:50)
[2017-10-14] MEDS: ALDACTONE TAB 25 MG PO SCH (09:50)
[2017-10-14] MEDS: LEVAQUIN PREMIX IV 750 MG 750 MG/150 ML BAG IV SCH (09:51)
[2017-10-14] MEDS: HEMOCYTE-PLUS PO SCH (09:51)
[2017-10-14] MEDS: GLUCOPHAGE PO SCH (09:51)
[2017-10-14] MEDS: LANOXIN PO SCH (09:51)
[2017-10-14] MEDS: LASIX IVP SCH (09:52)
[2017-10-14] MEDS: PROTONIX INJ 40 MG VIAL IVP SCH (09:52)
[2017-10-14 12:38] VITALS: BP 121/65
== END 2017-10-14 15:50 | disposition home or self-care (01) | DRG 194 ==
LOC: UNDOADMOB 10:40 → OBS 10:40 → OBSVTOIN 10-12 09:00 → MED/SURG 10-13 12:10
PROVIDERS: ADMIT Internal Medicine; ATTEND Internal Medicine
DX: J18.0 Bronchopneumonia, unspecified organism (principal); I50.9 Heart failure, unspecified; E11.65 Type 2 diabetes mellitus with hyperglycemia; I10 Essential (primary) hypertension; E78.2 Mixed hyperlipidemia; R06.02 Shortness of breath; R60.0 Localized edema; D50.8 Other iron deficiency anemias; E87.1 Hypo-osmolality and hyponatremia
CPT/HCPCS: 36415; 36600; 71010; 71020; 80053; 80162; 82607; 82728; 82746; 82803; 82947; 83540; 83550; 83880; 84466; 85025; 87040; 87070; 87205; 93306; 94640; 94760; A4222; C9113; G0378; J0713; J1940; J1956; J2405; J7620

== ENCOUNTER 2020-01-08 13:01 | Inpatient (IN) ==
[2020-01-08] MEDS ORDERED: TYLENOL 325 MG TAB PO PRN (14:39)
[2020-01-08] MEDS ORDERED: BENADRYL INJ 50 MG VIAL IVP PRN (14:39)
[2020-01-08] MEDS ORDERED: NS 500 ML IV 500 ML IV ONE (14:39)
[2020-01-08] MEDS ORDERED: PEPCID 20 MG IV PREMIX* 20 MG/50 ML BAG IV SCH (14:39)
[2020-01-08] MEDS: NS 1000 ML 1,000 ML IV SCH (14:49)
[2020-01-08] MEDS: PROTONIX INJ 40 MG VIAL IVP SCH ×2 (14:50→20:43)
[2020-01-08 14:52] LABS: BASOPHILS % (AUTO) 0.8 % (0.2-1.0); EOSINOPHILS # (AUTO) 0.4 x10^3/uL (0.0-0.2); EOSINOPHILS % (AUTO) 6.2 % (0.9-2.9); LYMPHOCYTES # (AUTO) 1.3 X10^3/uL (1.3-2.9); LYMPHOCYTES % (AUTO) 23.1 % (21.0-51.0); MEAN CORPUSCULAR HEMOGLOBIN 27.7 pg (27.0-34.0); MEAN CORPUSCULAR HGB CONC 33.3 g/dL (33.0-35.0); MEAN CORPUSCULAR VOLUME 83.4 fL (80.0-100.0); MEAN PLATELET VOLUME 7.6 fL (7.4-11.0); MONOCYTES # (AUTO) 0.7 x10^3/uL (0.3-0.8); MONOCYTES % (AUTO) 12.6 % (0.0-13.0); NEUTROPHILS # (AUTO) 3.3 x10^3/uL (2.2-4.8); NEUTROPHILS % (AUTO) 57.3 % (42.0-75.0); PLATELET COUNT 320 X10^3/uL (150.0-450.0); RED BLOOD COUNT 2.52 X10^6/uL (4.7-6.0); WHITE BLOOD COUNT 5.8 X10^3/uL (3.6-10.0)
[2020-01-08 15:04] LABS: ALBUMIN 2.9 g/dL (3.4-5.0); CALCIUM 8.8 mg/dL (8.5-10.1); CARBON DIOXIDE 30.8 mmol/L (21-32); COR CA(FOR HYPOALB) 9.7 mg/dL (8.5-10.1); CREATININE 1.91 mg/dL (0.70-1.30)
[2020-01-08 15:05] VITALS: BMI 20.7
[2020-01-08 15:05] LABS: PLATELET MORPHOLOGY COMMENT NORMAL (NORMAL)
[2020-01-08] MEDS: DUONEB 0.5 MG/3 MG (3 mL) NEB SCH (20:40)
[2020-01-08] MEDS ORDERED: NS 250 ML IV 250 ML IV ONE (20:51)
[2020-01-08] MEDS ORDERED: HumuLIN R SUBCUT PRN (21:15)
[2020-01-09 00:19] LABS: HEMATOCRIT 25.8 % (42.0-54.0); HEMOGLOBIN 8.8 g/dL (13.5-18.0)
[2020-01-09] MEDS: DUONEB 0.5 MG/3 MG (3 mL) NEB SCH ×6 (01:30→21:35)
[2020-01-09 05:47] LABS: BASOPHILS # (AUTO) 0.1 X10^3/uL (0.0-0.1); EOSINOPHILS # (AUTO) 0.3 x10^3/uL (0.0-0.2); EOSINOPHILS % (AUTO) 6.4 % (0.9-2.9); HEMATOCRIT 26.1 % (42.0-54.0); LYMPHOCYTES # (AUTO) 1.2 X10^3/uL (1.3-2.9); LYMPHOCYTES % (AUTO) 22.4 % (21.0-51.0); MEAN CORPUSCULAR HEMOGLOBIN 28.3 pg (27.0-34.0); MEAN CORPUSCULAR HGB CONC 34.3 g/dL (33.0-35.0); MEAN CORPUSCULAR VOLUME 82.4 fL (80.0-100.0); MEAN PLATELET VOLUME 7.4 fL (7.4-11.0); MONOCYTES # (AUTO) 0.7 x10^3/uL (0.3-0.8); MONOCYTES % (AUTO) 12.6 % (0.0-13.0); NEUTROPHILS % (AUTO) 57.6 % (42.0-75.0); PLATELET COUNT 286 X10^3/uL (150.0-450.0); RED BLOOD COUNT 3.17 X10^6/uL (4.7-6.0); RED CELL DISTRIBUTION WIDTH 15.5 % (11.6-16.5); WHITE BLOOD COUNT 5.3 X10^3/uL (3.6-10.0)
[2020-01-09 05:58] LABS: ALBUMIN 2.7 g/dL (3.4-5.0); CALCIUM 8.4 mg/dL (8.5-10.1); CARBON DIOXIDE 29.5 mmol/L (21-32); COR CA(FOR HYPOALB) 9.4 mg/dL (8.5-10.1); CREATININE 1.73 mg/dL (0.70-1.30); TOTAL PROTEIN 6.5 g/dL (6.4-8.2)
[2020-01-09] MEDS: PROTONIX INJ 40 MG VIAL IVP SCH ×2 (08:20→21:31)
[2020-01-09] MEDS: PEPCID 20 MG IV PREMIX* 20 MG/50 ML BAG IV SCH (08:20)
[2020-01-09] MEDS: NS 1000 ML 1,000 ML IV SCH ×2 (08:22→16:41)
[2020-01-09] MEDS ORDERED: PERCOCET TAB 5/325 MG PO PRN (10:01)
[2020-01-09] MEDS ORDERED: DIABETA PO PRN (10:01)
[2020-01-09] MEDS ORDERED: NITROSTAT SL PRN (10:01)
[2020-01-09] MEDS: ISOSORBIDE DINITRATE PO SCH (13:36)
[2020-01-09] MEDS: MAG-OX TAB PO SCH (13:36)
[2020-01-09] MEDS: JANUVIA PO SCH (13:36)
[2020-01-09] MEDS: SYNTHROID 50 mcg TAB PO SCH (13:37)
[2020-01-09] MEDS: COREG TAB 3.125 MG PO SCH ×2 (13:37→21:32)
[2020-01-09] MEDS: ALDACTONE TAB 25 MG PO SCH (13:37)
[2020-01-09] MEDS: COZAAR PO SCH (13:37)
[2020-01-09] MEDS: LANOXIN or DIGITEK PO SCH (13:37)
[2020-01-09] MEDS: TobraDEX OPHTH SUSP 1 DOSE OP SCH ×2 (14:24→21:32)
[2020-01-09 16:00] LABS: IRON 27 ug/dL (50-175); TOTAL IRON BINDING CAPACITY 289 ug/dL (250-450)
--- NOTE | 2020-01-09 17:04 | CT ---
CT CHEST ABDOMEN PELVIS WITH CONTRASTCLINICAL INDICATION: Hemoptysis. Abdominal pain with recent left flank trauma.PROCEDURE: Following administration of non-ionic IV contrast, postcontrast CT images were obtained through the chest abdomen and pelvis. Dose reduction techniques including Automated Exposure Control (AEC) and adjustment of mA and kV were utlized.COMPARISON: [Chest CT 12/03/2019]FINDINGS:CT chest: Cardiomegaly. Severe coronary calcification.. No pericardial effusion. Redemonstration of mediastinal and hilar adenopathy which is similar to prior. Redemonstration of patchy bilateral ground-glass in a predominantly perihilar distribution. This is somewhat improved when compared to prior. There is septal thickening primarily in the lung bases with some early peripheral basilar fibrosis..Trace bilateral pleural effusions.Airways are patent..CT Abdomen and pelvis : Liver and spleen are normal in size, enhancement characteristics and contour . No focal lesions . The portal vein is patent . No ductal dilitation.Gallbladder is present. No gallstones or gallbladder wall thickening .The pancreas is unremarkable . Adrenal glands are normal. Large exophytic left heterogeneously enhancing renal mass measuring approximately 6 x 5 cm and arising from the lower pole of the left kidney..No hydronephrosis or nephrolithiasis.No bowel obstruction or inflammation. Normal appendix. No abnormal appearing mesenteric or retroperitoneal lymph nodes . No free fluid or fluid collections .Bladder is normal. Prostate measures 5 cm no pelvic adenopathy or fluid collections.No aggressive osseous lesions.IMPRESSION:1. Large left renal mass which is similar to patient's recent prior. This is to be considered renal malignancy unless proven otherwise.2. No definite source of hemoptysis. Improving patchy bilateral ground-glass suggests improvement of atypical infection or resolving edema. Mediastinal and hilar adenopathy favors infection.3. Other chronic findings as above.Electronically signed by: GLENDY JACKSON (Jan 09, 2020 17:02:43)
[2020-01-09] MEDS ORDERED: SNACK - Diabetic Appropriate PO SCH ×2 (20:00)
--- NOTE | 2020-01-09 20:42 | DR.UPDATE ---
H&P Update History and Physical Update: History and Physical reviewed and patient examined. Changes noted: Yes with the following: WAS SEEN IN THE OFFICE FOR COMPLAINTS OF SHORTNESS OF BREATH AND WEAKNESS. HE REPORTS COUGHING UP BLOOD AND DARK COLORED STOOLS AT TIMES. HE ALSO REPORTS LOWER BACK PAIN AND NECK PAIN. PA IN WAS DESCRIBED CHRONIC. OUTPATIENT LABS WERE OBTAINED. LABS REVEALED AN ABNORMAL HGB OF 6.5. HE WAS ADMITTED FOR FURTHER EVALUATION AND TREATMENT. ON ADMISSION, VITALS WERE 97.6-67-20-99%-97/50. LABS WERE OBTAINED. ABNORMAL LAB VALUES INCLUDE THE FOLLOWING: RBC 2.52, HGB 7.0, HCT 21.0, BUN 39, CREATININE 1.91, GLUCOSE 130, AST 14, ALK PHOS 44, ALBUMIN 2.9. WE TYPE AND SCREENED AND THEN TRANSFUSED WITH TWO UNITS OF PRBC. WE STARTED NS AT 80 ML/HR, IV PEPCID, IV PROTONIX, AND HOME MEDICATIONS WERE RESUMED. TODAY, WE WILL OBTAIN A CHEST CT AND ABDOMEN/PELVIS CT WITH CONTRAST. WE WILL CONSULT WITH , [employer]. OTHERWISE, WE PLAN TO FOLLOW UP WITH AM LABS AND CONTINUE TO MONITOR. Prescription drug monitoring program results: PDMP was not reviewed H&P Reviewed: Yes Patient was examined?: Yes
[2020-01-09] MEDS ORDERED: LEVAQUIN PREMIX IV 500 MG 500 MG/100 ML BAG IV SCH (21:00)
[2020-01-09] MEDS ORDERED: LIPITOR TAB 40 MG PO SCH (21:00)
[2020-01-09] MEDS ORDERED: FORTAZ or TAZICEF VIAL INJ 1 G in NS 100 ML IV + SPIKE MINIBAG* 100 ML IV SCH (22:00)
[2020-01-09] MEDS: FORTAZ or TAZICEF VIAL INJ 1 G in NS 100 ML IV + SPIKE MINIBAG* 100 ML IV SCH (22:00)
[2020-01-10] MEDS: DUONEB 0.5 MG/3 MG (3 mL) NEB SCH ×3 (00:43→09:25)
[2020-01-10 05:24] LABS: BASOPHILS % (AUTO) 0.8 % (0.2-1.0); EOSINOPHILS # (AUTO) 0.1 x10^3/uL (0.0-0.2); EOSINOPHILS % (AUTO) 2.6 % (0.9-2.9); HEMATOCRIT 26.5 % (42.0-54.0); LYMPHOCYTES # (AUTO) 0.9 X10^3/uL (1.3-2.9); LYMPHOCYTES % (AUTO) 16.1 % (21.0-51.0); MEAN CORPUSCULAR VOLUME 82.5 fL (80.0-100.0); MEAN PLATELET VOLUME 7.3 fL (7.4-11.0); MONOCYTES # (AUTO) 0.7 x10^3/uL (0.3-0.8); MONOCYTES % (AUTO) 12.6 % (0.0-13.0); NEUTROPHILS # (AUTO) 3.7 x10^3/uL (2.2-4.8); NEUTROPHILS % (AUTO) 67.9 % (42.0-75.0); PLATELET COUNT 291 X10^3/uL (150.0-450.0); RED BLOOD COUNT 3.22 X10^6/uL (4.7-6.0); RED CELL DISTRIBUTION WIDTH 15.5 % (11.6-16.5); WHITE BLOOD COUNT 5.5 X10^3/uL (3.6-10.0)
[2020-01-10 05:49] LABS: ALBUMIN 2.8 g/dL (3.4-5.0); CALCIUM 8.3 mg/dL (8.5-10.1); COR CA(FOR HYPOALB) 9.3 mg/dL (8.5-10.1); CREATININE 1.76 mg/dL (0.70-1.30); TOTAL PROTEIN 6.7 g/dL (6.4-8.2)
[2020-01-10] MEDS: NS 1000 ML 1,000 ML IV SCH (05:49)
[2020-01-10] MEDS: FORTAZ or TAZICEF VIAL INJ 1 G in NS 100 ML IV + SPIKE MINIBAG* 100 ML IV SCH ×2 (10:06→11:57)
[2020-01-10] MEDS: PEPCID 20 MG IV PREMIX* 20 MG/50 ML BAG IV SCH (10:06)
[2020-01-10] MEDS: LANOXIN or DIGITEK PO SCH (10:07)
[2020-01-10] MEDS: JANUVIA PO SCH (10:09)
[2020-01-10] MEDS: ISOSORBIDE DINITRATE PO SCH (10:09)
[2020-01-10] MEDS: COREG TAB 3.125 MG PO SCH (10:10)
[2020-01-10] MEDS: COZAAR PO SCH (10:11)
[2020-01-10] MEDS: SYNTHROID 50 mcg TAB PO SCH (10:12)
[2020-01-10] MEDS: MAG-OX TAB PO SCH (10:12)
[2020-01-10] MEDS: PROTONIX INJ 40 MG VIAL IVP SCH ×2 (10:13→11:58)
[2020-01-10] MEDS: ALDACTONE TAB 25 MG PO SCH (10:13)
[2020-01-10] MEDS: TobraDEX OPHTH SUSP 1 DOSE OP SCH (10:14)
[2020-01-10 11:23] VITALS: BP 113/72
[2020-01-10] MEDS ORDERED: LEVAQUIN PREMIX IV 250 MG 250 MG/50 ML BAG IV SCH (21:00)
[2020-01-11 21:28] LABS: RBC FOLIC ACID 1031
== END 2020-01-10 11:35 | disposition home or self-care (01) | DRG 812 ==
LOC: OBS 13:09 → MED/SURG 01-09 16:36
PROVIDERS: ADMIT Internal Medicine; ATTEND Internal Medicine
DX: D64.9 Anemia, unspecified; M54.5 Low back pain; R06.02 Shortness of breath; E11.65 Type 2 diabetes mellitus with hyperglycemia; R53.1 Weakness; R10.84 Generalized abdominal pain; M54.2 Cervicalgia; I25.10 Atherosclerotic heart disease of native coronary artery without angina pectoris; R04.2 Hemoptysis; Z79.01 Long term (current) use of anticoagulants; R63.4 Abnormal weight loss
CPT/HCPCS: 36415; 71260; 74177; 80053; 82270; 82607; 82747; 83540; 83550; 85014; 85018; 85025; 86850; 86900; 86901; 86922; 94640; 94760; A4222; C9113; J0713; J1200; J1815; J3490; J7030; J7040; J7050; J7620; P9016; S0028

== ENCOUNTER 2021-01-11 06:25 | Observation (INO) ==
[2021-01-11] MEDS ORDERED: ZOFRAN INJ 4 MG VIAL IVP ONE (07:01)
[2021-01-11] MEDS ORDERED: NS 1000 ML 1,000 ML IV ONE (07:01)
[2021-01-11] MEDS ORDERED: ZOFRAN INJ 4 MG VIAL ONE (07:08)
[2021-01-11] MEDS ORDERED: NS 1000 ML 1,000 ML ONE ×2 (07:09→11:20)
[2021-01-11 07:52] LABS: BASOPHILS % (AUTO) 0.5 % (0.2-1.0); EOSINOPHILS # (AUTO) 0.1 x10^3/uL (0.0-0.2); EOSINOPHILS % (AUTO) 1.2 % (0.9-2.9); HEMATOCRIT 31.9 % (42.0-54.0); HEMOGLOBIN 10.3 g/dL (13.5-18.0); LYMPHOCYTES # (AUTO) 1.3 X10^3/uL (1.3-2.9); MEAN CORPUSCULAR HEMOGLOBIN 27.4 pg (27.0-34.0); MEAN CORPUSCULAR HGB CONC 32.4 g/dL (33.0-35.0); MEAN CORPUSCULAR VOLUME 84.7 fL (80.0-100.0); MEAN PLATELET VOLUME 8.1 fL (7.4-11.0); MONOCYTES # (AUTO) 0.7 x10^3/uL (0.3-0.8); MONOCYTES % (AUTO) 8.8 % (0.0-13.0); NEUTROPHILS # (AUTO) 5.5 x10^3/uL (2.2-4.8); NEUTROPHILS % (AUTO) 72.5 % (42.0-75.0); PLATELET COUNT 205 X10^3/uL (150.0-450.0); RED BLOOD COUNT 3.77 X10^6/uL (4.7-6.0); RED CELL DISTRIBUTION WIDTH 18.4 % (11.6-16.5); WHITE BLOOD COUNT 7.6 X10^3/uL (3.6-10.0)
--- NOTE | 2021-01-11 07:59 | DR.DIZZY ---
HPI Time seen Time Seen by Provider: 01/11/21 07:46 PCP Primary Care Physician: YOSVANY HPI Comment HPI Comment: Patient presents with complaint of weakness and constipation. Patient with recent nephrectomy and had chronic indwelling [place] catheter. notes that patient has not eaten or drank as usual in 2-3 days. Complaint Chief Complaint:: " PATIENT HAD LEFT KIDNEY REMOVED ON 12/01/20 AND HAS HAD SOME WEAKNESS AND FATIQUE THE PAST WEEK. PATIENT HAS NOT BEEN EATING OR DRINKING AND HAS BEEN CONSTIPATED. PATIENT ALSO HAS HAD A URINARY CATHETER SINCE THE SURGERY." COVID-19 Coronavirus risk:travel/contact w/high risk person: No Has patient experienced Coronavirus symptoms: No Source History Provided: Patient and Significant Other Mode of Arrival Mode of Arrival: Ambulatory Timing Onset of Chief Complaint: 01/11/21 Context Stroke Symptoms: None PMH PMH Past Medical History: Yes Past Medical History: CHF, Coronary Artery Disease, Diabetes and GERD Past Medical History Comment: PENILE CANCER Past Surgical History: Yes Past Surgical History Comment: KIDNEY REMOVAL 12/01/20 PENIS REMOVAL Family History History of Family Medical Conditions: Yes Family Medical History: Diabetes Mellitus and Cancer Social History Type of Tobacco Use: None Alcohol Use: None Do you use any recreational Drugs:: No Lives With: Alone Lives Where: Home Travel Risk Coronavirus risk:travel/contact w/high risk person: No Has patient experienced Coronavirus symptoms: No Infectious screening In the last 2 months have you had wt loss of >10#?: YES Have you had fever, night sweats or hemotysis?: No Have you traveled outside the country in the last 6 months?: No Isolation: Standard ROS Review of Systems Constitutional: See HPI, Malaise and Weakness Gastrointestinal/Abdominal: See HPI Genitourinary: See HPI All Other Systems: Reviewed and Negative PE Vital Signs Vitals: Temperature 97 F Pulse Rate 74 Respiratory Rate 18 Blood Pressure [Right Arm] 113/72 Blood Pressure 141/72 O2 Sat by Pulse Oximetry 99 General Limitations: No Limitations General Appearance: Alert and In No Apparent Distress Head Head Exam: Normal Inspection, Atraumatic and Normocephalic Eyes Eye exam: Normal Appearance and EOMI ENT ENT Exam: Normal Exam Neck Neck Exam: Normal Inspection and Trachea Midline Chest Chest Inspection: Normal Inspection and Symmetric Chest Wall Rise Respiratory Respiratory Exam: Normal Lung Sounds Bilat Respiratory Exam: Bilateral: Clear to Auscultation Cardiovascular Cardiovascular Exam: Regular Rate, Normal Rhythm and Normal Heart Sounds Abdominal Exam Abdominal Exam: Normal Inspection, Normal Bowel Sounds and Soft Neurologic Neurological Exam: Alert and Oriented X3 Skin Skin Exam: Warm, Dry and Intact ROR Labs Reviewed Result Diagrams: 01/13/21 05:45 01/13/21 05:45 Laboratory: 01/11/21 07:25 Blood Blood Culture - Final 01/11/21 07:15 Blood Blood Culture - Final 01/11/21 08:27 Urine,[place] Urine Culture - Final Serratia Marcescens Klebsiella Pneumoniae WBC 7.6 X10^3/uL (3.6-10.0) 01/11/21 07:15 RBC 3.77 X10^6/uL (4.7-6.0) L 01/11/21 07:15 Hgb 10.3 g/dL (13.5-18.0) L 01/11/21 07:15 Hct 31.9 % (42.0-54.0) L 01/11/21 07:15 MCV 84.7 fL (80.0-100.0) 01/11/21 07:15 MCH 27.4 pg (27.0-34.0) 01/11/21 07:15 MCHC 32.4 g/dL (33.0-35.0) L 01/11/21 07:15 RDW 18.4 % (11.6-16.5) H 01/11/21 07:15 Plt Count 205 X10^3/uL (150.0-450.0) 01/11/21 07:15 MPV 8.1 fL (7.4-11.0) 01/11/21 07:15 Neut % (Auto) 72.5 % (42.0-75.0) 01/11/21 07:15 Lymph % (Auto) 17.0 % (21.0-51.0) L 01/11/21 07:15 [place] % (Auto) 8.8 % (0.0-13.0) 01/11/21 07:15 Eos % (Auto) 1.2 % (0.9-2.9) 01/11/21 07:15 Baso % (Auto) 0.5 % (0.2-1.0) 01/11/21 07:15 Neut # (Auto) 5.5 x10^3/uL (2.2-4.8) H 01/11/21 07:15 Lymph # (Auto) 1.3 X10^3/uL (1.3-2.9) 01/11/21 07:15 Swisher # (Auto) 0.7 x10^3/uL (0.3-0.8) 01/11/21 07:15 Eos # (Auto) 0.1 x10^3/uL (0.0-0.2) 01/11/21 07:15 Baso # (Auto) 0.0 X10^3/uL (0.0-0.1) 01/11/21 07:15 Absolute Nucleated RBC 0.1 /100WBC 01/11/21 07:15 Sodium 133 mmol/L (136-145) L 01/11/21 07:15 Corrected Sodium 135 mmol/L (136-145) L 01/11/21 07:15 Potassium 5.4 mmol/L (3.5-5.1) H 01/11/21 07:15 Chloride 98 mmol/L (98-107) 01/11/21 07:15 Carbon Dioxide 25.4 mmol/L (21-32) 01/11/21 07:15 BUN 53 mg/dL (7-18) H 01/11/21 07:15 Creatinine 2.99 mg/dL (0.70-1.30) H 01/11/21 07:15 Est GFR (MDRD) Af Amer 26 (>60) L 01/11/21 07:15 Est GFR (MDRD) Non-Af 22 (>60) L 01/11/21 07:15 Glucose 198 mg/dL (65-99) H 01/11/21 07:15 Calcium 9.1 mg/dL (8.5-10.1) 01/11/21 07:15 Corrected Calcium TNP 01/11/21 07:15 Total Bilirubin 1.00 mg/dL (0.2-1.0) 01/11/21 07:15 AST 18 Units/L (15-37) 01/11/21 07:15 ALT 20 Units/L (12-78) 01/11/21 07:15 Alkaline Phosphatase 50 Units/L (46-116) 01/11/21 07:15 Total Protein 7.1 g/dL (6.4-8.2) 01/11/21 07:15 Albumin 3.6 g/dL (3.4-5.0) 01/11/21 07:15 Globulin 3.5 g/dL (2.5-4.5) 01/11/21 07:15 Albumin/Globulin Ratio 1.0 Ratio (1.1-2.1) L 01/11/21 07:15 Specimen Type Catherized urine 01/11/21 08:27 Urine Color Yellow (YELLOW) 01/11/21 08:27 Urine Appearance Cloudy (CLEAR) 01/11/21 08:27 Urine pH 6.0 (5.0 - 8.0) 01/11/21 08:27 Ur Specific Advance 1.020 (1.000-1.030) 01/11/21 08:27 Urine Protein 3+ (NEGATIVE) 01/11/21 08:27 Urine Glucose (UA) Negative (NEGATIVE) 01/11/21 08:27 Urine Ketones Negative (NEGATIVE) 01/11/21 08:27 Urine Occult Blood 2+ (NEGATIVE) 01/11/21 08:27 Urine Nitrite Positive (NEGATIVE) 01/11/21 08:27 Urine Bilirubin Negative (NEGATIVE) 01/11/21 08:27 Urine Urobilinogen Normal (NORMAL) 01/11/21 08:27 Ur Leukocyte Esterase 3+ (NEGATIVE) 01/11/21 08:27 Urine RBC 5-10 /HPF (0-3) A 01/11/21 08:27 Urine WBC 20-30 /HPF (0-5) A 01/11/21 08:27 Ur Squamous Epith Cells Few /HPF (NEGATIVE) 01/11/21 08:27 Amorphous Sediment 2+ /HPF (NEGATIVE) 01/11/21 08:27 Urine Bacteria 1+ /HPF (NEGATIVE) 01/11/21 08:27 Urine Mucus Few /HPF (NEGATIVE) 01/11/21 08:27 Ur Culture Indicated? Yes/culture set up 01/11/21 08:27 SARS CoV-2 RNA Rapid ADELINE Negative (NEGATIVE) 01/11/21 11:09 Opioid Opioid Risk Tool Age (Marcio box if 16-45): No History of Preadolescent Sexual Abuse: No Total: 0 Total Score Risk Category: Low Risk Copyright: Flores LR predicting aberrant behaviors Diagnosis Discharge Problem: Acute dehydration, Generalized weakness, Acute renal insufficiency UTI (urinary tract infection) Qualifiers: Urinary tract infection type: site unspecified Hematuria presence: with hematuria Qualified Code(s): N39.0 - Urinary tract infection, site not specified Instructions Instructions: Hyperglycemia, Ntqi-df-Svyz Indwelling Urinary Catheter Care, Adult, Mtaa-ve-Tdrw Urinary Tract Infection, Adult, Pmdh-cf-Qdob Constipation, Adult, Dqki-pf-Hlzj Hypertension, Xvrx-kn-Mcdq Living With Heart Failure Dehydration, Elderly, Pwwg-ra-Jmsx Forms: Excuse From Work or School Precautions for COVID19 Patient Portal Social Distancing
[2021-01-11 08:04] LABS: ALANINE AMINOTRANSFERASE 20 Units/L (12-78); ALBUMIN 3.6 g/dL (3.4-5.0); ALKALINE PHOSPHATASE 50 Units/L (46-116); ASPARTATE AMINO TRANSFERASE 18 Units/L (15-37); BLOOD UREA NITROGEN 53 mg/dL (7-18); CALCIUM 9.1 mg/dL (8.5-10.1); CARBON DIOXIDE 25.4 mmol/L (21-32); CHLORIDE 98 mmol/L (98-107); COR NA(FOR HYPERGLY) 135 mmol/L (136-145); CREATININE 2.99 mg/dL (0.70-1.30); SODIUM 133 mmol/L (136-145); TOTAL PROTEIN 7.1 g/dL (6.4-8.2); eGFR NON BLACK RACES 22 (>60)
--- NOTE | 2021-01-11 08:04 | RAD ---
HISTORYPT C/O N/V PMH: CHF, CAD, DM, PENILE CANCER PSH: KIDNEY REMOVAL (12/01/20)STUDYACUTE ABDOMEN SERIESCOMPARISONChest film March 02, 2020.FINDINGSThe trachea is midline. The cardiac silhouette is [unremarkable]. [The lungs are clear without focal mass or consolidation. There is no effusion or pneumothorax.] [The bony thorax is unremarkable].Flat plate and upright evaluation of the abdomen demonstrates a [normal bowel gas pattern other than minimally distended small bowel loops in the mid right abdomen consistent with mild ileus pattern. Vascular arterial calcifications are seen in the left upper quadrant.]. There is no pneumoperitoneum. No pathological soft tissue mass or calcification can be observed. The bony structures are grossly intact.IMPRESSION1. [No acute cardiopulmonary disease.]2. Mild small bowel ileus pattern observed in the right abdomen..]Electronically signed by: DUKE RICHTER (Jan 11, 2021 08:01:19)
[2021-01-11 08:36] LABS: BILIRUBIN,URINE NEGATIVE (NEGATIVE); BLOOD/HEMOGLOBIN,URINE 2+ (NEGATIVE); GLUCOSE, URINE NEGATIVE (NEGATIVE); KETONES,URINE NEGATIVE (NEGATIVE); LEUKOCYTE ESTERASE ,URINE 3+ (NEGATIVE); NITRITES,URINE POSITIVE (NEGATIVE); PROTEIN,URINE 3+ (NEGATIVE); UROBILINOGEN,URINE NORMAL (NORMAL)
[2021-01-11 09:07] LABS: APPEARANCE,URINE CLOUDY (CLEAR); COLOR,URINE YELLOW (YELLOW)
[2021-01-11 09:08] LABS: BACTERIA,URINE 1+ /HPF (NEGATIVE); SQUAMOUS EPITHELIAL CELL,UR FEW /HPF (NEGATIVE)
[2021-01-11 09:12] LABS: AMORPHOUS SEDIMENT,UR 2+ /HPF (NEGATIVE); MUCUS,URINE FEW /HPF (NEGATIVE)
--- NOTE | 2021-01-11 10:48 | DR.DIZZY ---
HPI Time seen Time Seen by Provider: 01/11/21 07:46 PCP Primary Care Physician: YOSVANY HPI Comment HPI Comment: PATIENT IS 80YR OLD MALE IN ER WITH GENERALIZED WEAKNESS, CONSTIPATION AND ANOREXIA. DENIES FEVER. PATIEN IS NAUSEAYED AND TIRED. DENIES DIARRHEA OR VOMITING. HAVE INDWELLING SEPULVEDA CATH. HISTORY NEPHRECTOMY 11/2020. HISTORY PENILE CANCER. Complaint Chief Complaint Doctor Comments: GENERALIZED WEAKNESS, ANOREXIA AND CONSTIPATION. Chief Complaint:: " PATIENT HAD LEFT KIDNEY REMOVED ON 12/01/20 AND HAS HAD SOME WEAKNESS AND FATIQUE THE PAST WEEK. PATIENT HAS NOT BEEN EATING OR DRINKING AND HAS BEEN CONSTIPATED. PATIENT ALSO HAS HAD A URINARY CATHETER SINCE THE SURGERY." COVID-19 Coronavirus risk:travel/contact w/high risk person: No Has patient experienced Coronavirus symptoms: No Nurses Notes Reviewed Nurses Notes Review: Yes Source History Provided: Patient and Significant Other Mode of Arrival Mode of Arrival: Ambulatory Timing Onset of Chief Complaint: 01/11/21 Came on: Suddenly Duration Duration: Constant Duration: Days Location of Weakness Weakness Location: Generalized Context Onset: At rest History of: Anemia Stroke Symptoms: Dizziness Severity Severity: Abnormal activity level Modifying factors Worsens: Other (EXERTION.) Associated signs and symptoms Associated Signs and Symptoms: Weak and Nausea PMH PMH Past Medical History: Yes Past Medical History: CHF, Coronary Artery Disease, Diabetes and GERD Past Medical History Comment: PENILE CANCER Past Surgical History: Yes Past Surgical History Comment: KIDNEY REMOVAL 12/01/20 PENIS REMOVAL Family History History of Family Medical Conditions: Yes Family Medical History: Diabetes Mellitus and Cancer Social History Type of Tobacco Use: None Alcohol Use: None Do you use any recreational Drugs:: No Lives With: Alone Lives Where: Home Travel Risk Coronavirus risk:travel/contact w/high risk person: No Has patient experienced Coronavirus symptoms: No Infectious screening In the last 2 months have you had wt loss of >10#?: YES Have you had fever, night sweats or hemotysis?: No Have you traveled outside the country in the last 6 months?: No Isolation: Standard ROS Review of Systems Constitutional: See HPI, Weakness, Fatigue and Loss of Appetite; negative Fever Eyes: No Symptoms Reported and See HPI ENTM: No Symptoms Reported and See HPI; negative Nose Discharge and Nose Congestion Respiratoy: See HPI and Short of Breath (ON EXERTION.); negative Moist Cough and Wheezing Cardiovascular: No Symptoms Reported and See HPI; negative Chest Pain and Palpitations Gastrointestinal/Abdominal: See HPI, Abdominal Pain and Constipation; negative Diarrhea, Nausea and Vomiting Genitourinary: See HPI, Pain and Other (HAVE IINDWELLING SEPULVEDA CATH.); negative Dysuria Neurological: See HPI and Weakness; negative Headache and Dizziness Musculoskeletal: No Symptoms Reported and See HPI Integumentary: See HPI and Dryness Hematologic/Lymphatic: See HPI and Easy Bruising Endocrine: Increased Thirst and Decreased Appetite; negative Increased Urine Psychiatric: No Symptoms Reported and See HPI All Other Systems: Reviewed and Negative PE Vital Signs Vitals: Temperature 97 F Pulse Rate 74 Respiratory Rate 18 Blood Pressure [Right Arm] 113/72 Blood Pressure 141/72 O2 Sat by Pulse Oximetry 99 General Limitations: No Limitations General Appearance: Alert and In Distress (ON EXERTION.) Head Head Exam: Normal Inspection and Atraumatic Eyes Eye exam: Normal Appearance and PERRL; negative Scleral Icterus and Conjunctival Injection Pupils: Regular, Round: Bilateral and Reactive: Bilateral Sclera/Conjunctival: Normal Inspection: Bilateral ENT ENT Exam: Normal Exam, Normal Oropharynx, Normal External Ear Exam and TM's Normal Bilaterally Neck Neck Exam: Normal Inspection, Full ROM and Trachea Midline; negative Tenderness and Lymphadenopathy Chest Chest Inspection: Normal Inspection and Symmetric Chest Wall Rise; negative Tenderness Respiratory Respiratory Exam: Normal Lung Sounds Bilat; negative Accessory Muscle Use, Chest Wall Tenderness and Respiratory Distress Respiratory Exam: Bilateral: Rhonchi and Lower: Rhonchi Cardiovascular Cardiovascular Exam: Regular Rate, Normal Rhythm and Normal Heart Sounds; negative Systolic Murmur and Diastolic Murmur Abdominal Exam Abdominal Exam: Normal Inspection, Normal Bowel Sounds and Soft; negative Tenderness Rectal Rectal Exam: Deferred Extremeties Extremities Exam: Normal Inspection, Full ROM and Normal Capillary Refill; negative Tenderness and Calf Tenderness Back Back Exam: Normal Inspection and Full ROM; negative (R) CVA Tenderness and (L) CVA Tenderness Neurologic Neurological Exam: Alert and Oriented X3; negative Motor Sensory Deficit Patient Oriented To: Person and Place; negative Time Cranial Nerve Exam: EOM Function (II, III, IV, ): Normal, Facial Sensation (V): Normal, Facial Palsy (VII): Normal, Gag reflex (XI): Normal and Tongue Deviation: Normal Motor Strength - LUE: 5/5 Motor Strength - RUE: 5/5 Motor Strength - LLE: 5/5 Motor Strength - RLE: 5/5 Upper Motor Neuron Exam: Babinski Sign: Normal Psychiatric Psychiatric Exam: Normal Affect and Normal Mood Skin Skin Exam: Dry; negative Rash MDM Differential Diagnosis Differential Diagnosis: Anemia, Dehydration, Dysrhythmia, Electrolyte disorder and Myocardial infarction Differential Diagnosis Comment: UTI, COURSE Treatment Treatment: SEE ORDERS. NS 1L IV BOLUS, ZOFRAN 4MG IV AND ROCEPHIN 1GM IVPB IN ER. Consultation Consultation Comments: DISCUSSED PATIENT WITH DR. BAR. HE WILL ADMIT PATIENT. Education/Counseling Education/Counseling: Patient Educated On: Diagnosis and Needs for Follow Up ROR Labs Reviewed Laboratory Results Reviewed?: Yes Result Diagrams: 01/13/21 05:45 01/13/21 05:45 Laboratory: 01/11/21 07:25 Blood Blood Culture - Final 01/11/21 07:15 Blood Blood Culture - Final 01/11/21 08:27 Urine,[place] Urine Culture - Final Serratia Marcescens Klebsiella Pneumoniae WBC 7.6 X10^3/uL (3.6-10.0) 01/11/21 07:15 RBC 3.77 X10^6/uL (4.7-6.0) L 01/11/21 07:15 Hgb 10.3 g/dL (13.5-18.0) L 01/11/21 07:15 Hct 31.9 % (42.0-54.0) L 01/11/21 07:15 MCV 84.7 fL (80.0-100.0) 01/11/21 07:15 MCH 27.4 pg (27.0-34.0) 01/11/21 07:15 MCHC 32.4 g/dL (33.0-35.0) L 01/11/21 07:15 RDW 18.4 % (11.6-16.5) H 01/11/21 07:15 Plt Count 205 X10^3/uL (150.0-450.0) 01/11/21 07:15 MPV 8.1 fL (7.4-11.0) 01/11/21 07:15 Neut % (Auto) 72.5 % (42.0-75.0) 01/11/21 07:15 Lymph % (Auto) 17.0 % (21.0-51.0) L 01/11/21 07:15 [place] % (Auto) 8.8 % (0.0-13.0) 01/11/21 07:15 Eos % (Auto) 1.2 % (0.9-2.9) 01/11/21 07:15 Baso % (Auto) 0.5 % (0.2-1.0) 01/11/21 07:15 Neut # (Auto) 5.5 x10^3/uL (2.2-4.8) H 01/11/21 07:15 Lymph # (Auto) 1.3 X10^3/uL (1.3-2.9) 01/11/21 07:15 [place]y # (Auto) 0.7 x10^3/uL (0.3-0.8) 01/11/21 07:15 Eos # (Auto) 0.1 x10^3/uL (0.0-0.2) 01/11/21 07:15 Baso # (Auto) 0.0 X10^3/uL (0.0-0.1) 01/11/21 07:15 Absolute Nucleated RBC 0.1 /100WBC 01/11/21 07:15 Sodium 133 mmol/L (136-145) L 01/11/21 07:15 Corrected Sodium 135 mmol/L (136-145) L 01/11/21 07:15 Potassium 5.4 mmol/L (3.5-5.1) H 01/11/21 07:15 Chloride 98 mmol/L (98-107) 01/11/21 07:15 Carbon Dioxide 25.4 mmol/L (21-32) 01/11/21 07:15 BUN 53 mg/dL (7-18) H 01/11/21 07:15 Creatinine 2.99 mg/dL (0.70-1.30) H 01/11/21 07:15 Est GFR (MDRD) Af Amer 26 (>60) L 01/11/21 07:15 Est GFR (MDRD) Non-Af 22 (>60) L 01/11/21 07:15 Glucose 198 mg/dL (65-99) H 01/11/21 07:15 Calcium 9.1 mg/dL (8.5-10.1) 01/11/21 07:15 Corrected Calcium TNP 01/11/21 07:15 Total Bilirubin 1.00 mg/dL (0.2-1.0) 01/11/21 07:15 AST 18 Units/L (15-37) 01/11/21 07:15 ALT 20 Units/L (12-78) 01/11/21 07:15 Alkaline Phosphatase 50 Units/L (46-116) 01/11/21 07:15 Total Protein 7.1 g/dL (6.4-8.2) 01/11/21 07:15 Albumin 3.6 g/dL (3.4-5.0) 01/11/21 07:15 Globulin 3.5 g/dL (2.5-4.5) 01/11/21 07:15 Albumin/Globulin Ratio 1.0 Ratio (1.1-2.1) L 01/11/21 07:15 Specimen Type Catherized urine 01/11/21 08:27 Urine Color Yellow (YELLOW) 01/11/21 08:27 Urine Appearance Cloudy (CLEAR) 01/11/21 08:27 Urine pH 6.0 (5.0 - 8.0) 01/11/21 08:27 Ur Specific [place] 1.020 (1.000-1.030) 01/11/21 08:27 Urine Protein 3+ (NEGATIVE) 01/11/21 08:27 Urine Glucose (UA) Negative (NEGATIVE) 01/11/21 08:27 Urine Ketones Negative (NEGATIVE) 01/11/21 08:27 Urine Occult Blood 2+ (NEGATIVE) 01/11/21 08:27 Urine Nitrite Positive (NEGATIVE) 01/11/21 08:27 Urine Bilirubin Negative (NEGATIVE) 01/11/21 08:27 Urine Urobilinogen Normal (NORMAL) 01/11/21 08:27 Ur Leukocyte Esterase 3+ (NEGATIVE) 01/11/21 08:27 Urine RBC 5-10 /HPF (0-3) A 01/11/21 08:27 Urine WBC 20-30 /HPF (0-5) A 01/11/21 08:27 Ur Squamous Epith Cells Few /HPF (NEGATIVE) 01/11/21 08:27 Amorphous Sediment 2+ /HPF (NEGATIVE) 01/11/21 08:27 Urine Bacteria 1+ /HPF (NEGATIVE) 01/11/21 08:27 Urine Mucus Few /HPF (NEGATIVE) 01/11/21 08:27 Ur Culture Indicated? Yes/culture set up 01/11/21 08:27 SARS CoV-2 RNA Rapid ADELINE Negative (NEGATIVE) 01/11/21 11:09 XRAY XRAY Interpreted by: Radiologist (REPORT NOTED.) EKG Rate: 76 [place]: Normal Rhythm: NSR Block: IVCD Hypertrophy: None ST: Old, Ant, Infarct and Nonsp Opioid Opioid Risk Tool Age (Marcio box if 16-45): No History of Preadolescent Sexual Abuse: No Total: 0 Total Score Risk Category: Low Risk Copyright: Flores predicting aberrant behaviors Diagnosis Discharge Problem: Acute dehydration, Generalized weakness, Acute renal insufficiency UTI (urinary tract infection) Qualifiers: Urinary tract infection type: site unspecified Hematuria presence: with hematuria Qualified Code(s): N39.0 - Urinary tract infection, site not specified Instructions Instructions: Hyperglycemia, Zohh-zi-Rjbf Indwelling Urinary Catheter Care, Adult, Aows-yn-Iluo Urinary Tract Infection, Adult, Wpyy-rm-Cpmv Constipation, Adult, Meqt-zq-Wfhl Hypertension, Efqt-ka-Evye Living With Heart Failure Dehydration, Elderly, Acci-sg-Huyh Forms: Excuse From Work or School Precautions for COVID19 Patient Portal Social Distancing
[2021-01-11] MEDS ORDERED: ROCEPHIN 1 GRAM IV PREMIX 1 G/50 ML IV.SOLN. IV ONE (11:14)
[2021-01-11] MEDS ORDERED: ROCEPHIN VIAL 1 GRAM ONE (11:20)
[2021-01-11] MEDS ORDERED: NS 100 ML IV + SPIKE MINIBAG* 100 ML IV ONE (11:21)
[2021-01-11] MEDS ORDERED: NS 1000 ML 1,000 ML IV SCH (12:00)
[2021-01-11] MEDS: NS 1000 ML 1,000 ML IV SCH ×2 (17:27→22:20)
[2021-01-11 19:12] LABS: CKMB % 4.1 % (<4); TROPONIN I 0.02 ng/mL (0-1.5)
[2021-01-11] MEDS: SNACK - Diabetic Appropriate PO SCH (20:00)
[2021-01-11] MEDS: HumuLIN R SUBCUT PRN (21:18)
[2021-01-12 00:59] LABS: CKMB % 4.5 % (<4); CREATINE KINASE MB 2.3 ng/mL (0-4.0); TROPONIN I 0.03 ng/mL (0-1.5)
[2021-01-12] MEDS ORDERED: MILK OF MAGNESIA PO PRN (01:05)
[2021-01-12] MEDS ORDERED: MILK OF MAGNESIA ONE (01:41)
[2021-01-12] MEDS: NS 1000 ML 1,000 ML IV SCH ×4 (05:33→22:41)
[2021-01-12 06:52] LABS: BASOPHILS # (AUTO) 0.1 X10^3/uL (0.0-0.1); BASOPHILS % (AUTO) 0.7 % (0.2-1.0); EOSINOPHILS # (AUTO) 0.1 x10^3/uL (0.0-0.2); EOSINOPHILS % (AUTO) 1.7 % (0.9-2.9); HEMATOCRIT 29.1 % (42.0-54.0); HEMOGLOBIN 9.4 g/dL (13.5-18.0); LYMPHOCYTES # (AUTO) 1.5 X10^3/uL (1.3-2.9); LYMPHOCYTES % (AUTO) 19.5 % (21.0-51.0); MEAN CORPUSCULAR HEMOGLOBIN 27.3 pg (27.0-34.0); MEAN CORPUSCULAR HGB CONC 32.3 g/dL (33.0-35.0); MEAN CORPUSCULAR VOLUME 84.4 fL (80.0-100.0); MONOCYTES # (AUTO) 0.8 x10^3/uL (0.3-0.8); MONOCYTES % (AUTO) 9.8 % (0.0-13.0); NEUTROPHILS # (AUTO) 5.3 x10^3/uL (2.2-4.8); NEUTROPHILS % (AUTO) 68.3 % (42.0-75.0); PLATELET COUNT 202 X10^3/uL (150.0-450.0); RED BLOOD COUNT 3.45 X10^6/uL (4.7-6.0); WHITE BLOOD COUNT 7.7 X10^3/uL (3.6-10.0)
[2021-01-12 07:11] LABS: ALANINE AMINOTRANSFERASE 17 Units/L (12-78); ALBUMIN 3.2 g/dL (3.4-5.0); ALKALINE PHOSPHATASE 46 Units/L (46-116); ASPARTATE AMINO TRANSFERASE 18 Units/L (15-37); BLOOD UREA NITROGEN 47 mg/dL (7-18); CALCIUM 8.4 mg/dL (8.5-10.1); CARBON DIOXIDE 25.3 mmol/L (21-32); CHLORIDE 103 mmol/L (98-107); CREATININE 2.71 mg/dL (0.70-1.30); MAGNESIUM 2.6 mg/dL (1.7-2.9); SODIUM 138 mmol/L (136-145); TOTAL PROTEIN 6.6 g/dL (6.4-8.2); eGFR NON BLACK RACES 24 (>60)
[2021-01-12] MEDS: ROCEPHIN 1 GRAM IV PREMIX 1 G/50 ML IV.SOLN. IV SCH (08:35)
[2021-01-12] MEDS ORDERED: KLONOPIN TAB 0.5 MG PO PRN (10:12)
--- NOTE | 2021-01-12 10:34 | RAD ---
HISTORYABDOMINAL PAINSTUDYKUB x-ray abdomen one viewCOMPARISONX-ray 01/11/2021FINDINGSMild retained fecal material in the left side of the colon is likely within normal limits. Little small bowel air is seen, improved. No small bowel or colonic dilation is seen. Vascular calcifications are seen in the region of the splenic artery.IMPRESSIONNo abnormalities are seen with the bowel gas pattern.Electronically signed by: Vasu Ventura (Jan 12, 2021 10:32:21)
--- NOTE | 2021-01-12 10:34 | DR.H&P ---
H&P - History & Physical for Day of: H&P Date: 01/11/21 - Chief Complaint Chief Complaint: WEAKNESS, FATIGUE, DECREASED APPETITE, CONSTIPATION - History of Present Illness History of Present Illness: IS A 80 YEAR OLD PATIENT OF OURS. HE PRESENTED TO THE ER WITH COMPLAINTS OF GENERALIZED WEAKNESS AND CONSTIPATION. PATIENT REPORTS THAT HE HAD HIS LEFT KIDNEY REMOVED ON 12/01/2020. HE REPORTS WEAKNESS, FATIGUE, DECREASED APPETITE, AND CONSTIPATION FOR THE PAST WEEK. HE HAS HAD A SEPULVEDA CATHETER IN PLACE SINCE SURGERY. HIS PMH INCLUDES CHF, CAD, DIABETES, GERD, AND PENILE CANCER. ON ARRIVAL TO THE ER, VITALS WERE 97.0-72-18-100%-129/64. LABS WERE OBTAINED. ABNORMAL LAB VALUES INCLUDE THE FOLLOWING: RBC 3.77, HGB 10.3, HCT 31.9, SODIUM 133, POTASSIUM 5.4, BUN 53, CREATININE 2.99, GLUCOSE 198. CARDIAC ENZYMES WERE WITHIN NORMAL LIMITS. A URINALYSIS WAS OBTAINED AND REVEALED: URINE WBC 20-30, RBC 5-10, LEUKOCYTES 3+, BACTERIA 1+, NITRITES POSITIVE, OCCULT BLOOD 2+, PROTEIN 3+. URINE AND BLOOD CULTURES WERE SET UP. AN ABDOMINAL SERIES WAS OBTAINED AND REVEALED: 1. No acute cardiopulmonary disease. 2. Mild small bowel ileus pattern observed in the right abdomen. EKG REVEALED: SINUS RHYTHM WITH HR 76. IN THE ER, HE WAS GIVEN A NORMAL SALINE BOLUS, ZOFRAN 4MG IV X 1 DOSE, ROCEPHIN 1G IV X 1 DOSE. HE DENIED IMPROVEMENT IN SYMPTOMS. HE WAS ADMITTED TO THE HOSPITAL FOR FURTHER EVALUATION AND TREATMENT OF DEHYDRATION, UTI, AND ILEUS. HE WAS STARTED ON NORMAL SALINE AT 100 ML/HR, ROCEPHIN 1G IV DAILY, HUMULIN R SLIDING SCALE, MILK OF MAGNESIA 15ML PO QID, SENOKOT 1 TABLET PO DAILY, MIRALAX 17G PO DAILY, AND KLONOPIN 0.5MG PO BID PRN. WE WILL REVIEW HIS HOME MEDICATIONS. OTHERWISE, WE PLAN TO FOLLOW UP WITH AM LABS AND CONTINUE TO MONITOR. TIME SPENT ON CLINICAL ASSESSMENT, REVIEWING LABS AND IMAGING, DECISION MAKING, AND DOCUMENTATION GREATER THAN 75 MINUTES. - Past Medical History Past Medical History: Coronary Artery Disease, Diabetes, GERD, CHF Additional Medical History: PENILE CANCER - Past Surgical History Surgical History: Other Additional Surgical History: LEFT NEPHRECTOMY - Family History Family Medical History: Cancer - Social History Type of Tobacco Use: None Does any household member use tobacco: No Alcohol Use: None Drug Use: None - Medications Home Medications: No Known Drug Allergies Allergy (Verified 10/10/17 11:40) CONTINUE taking the following medications oxycodone-acetaminophen 1 tab PO QID 01/11/21 [History] - Review of Systems Constitutional: Weakness, Malaise, Other (DECREASED APPETITE ) Eyes: No Symptoms Reported ENT: No Symptoms Reported Respiratory: No Symptoms Reported Cardiovascular: No Symptoms Reported Gastrointestinal: See HPI, Constipation. denies: Nausea, Vomiting, Abdominal Pain Genitourinary: No Symptoms Reported Musculoskeletal: No Symptoms Reported Skin: No Symptoms Reported Neurological: Weakness - Physical Exam Vital Signs: Temperature 97.8 F Pulse Rate [Left] 64 Pulse Rate 69 Respiratory Rate 18 Blood Pressure [Right Arm] 140/85 Blood Pressure 131/65 O2 Sat by Pulse Oximetry 98 Oriented: Normal Eyes: Normal Ear: Normal Nose: Normal Throat: Normal Respiratory: Diminished Throughout Cardiovascular: Normal. negative: S3, S4, Murmur : Normal Auscultation: Bowel Sounds: Normal Palpation: Normal Tenderness: Normal Skin: Normal Musculoskeletal: Normal Psychiatric: Normal Mood Description: Calm Affect: Normal Speech Pattern: Clear - Assessment/Plan (1) Dehydration Status: Acute Plan: ADMIT, NORMAL SALINE AT 100 ML/HR, ROCEPHIN 1G IV DAILY, HUMULIN R SLIDING SCALE, MILK OF MAGNESIA 15ML PO QID, SENOKOT 1 TABLET PO DAILY, MIRALAX 17G PO DAILY, AND KLONOPIN 0.5MG PO BID PRN. (2) Urinary tract infection Qualifiers: Urinary tract infection type: acute cystitis Hematuria presence: with hematuria Qualified Code(s): N30.01 - Acute cystitis with hematuria Status: Acute (3) Ileus Status: Acute - Allergies Allergies/Adverse Reactions: Allergies Allergy/AdvReac Type Severity Reaction Status Date / Time No Known Drug Allergies Allergy Verified 10/10/17 11:40
[2021-01-12] MEDS ORDERED: PERCOCET TAB 5/325 MG PO PRN (10:36)
[2021-01-12] MEDS ORDERED: SAW PALMETTO 160 MG PO SCH (10:45)
[2021-01-12] MEDS: SYNTHROID 50 mcg TAB PO SCH (11:30)
[2021-01-12] MEDS: HumuLIN R SUBCUT PRN ×2 (11:35→17:08)
[2021-01-12] MEDS: LANOXIN or DIGITEK PO SCH (11:35)
[2021-01-12] MEDS: MIRALAX POWDER (1 DOSE 17 G) PO SCH (11:35)
[2021-01-12] MEDS: SENOKOT PO SCH (11:35)
[2021-01-12] MEDS: MILK OF MAGNESIA PO SCH ×4 (11:48→20:24)
[2021-01-12 18:15] VITALS: BMI 22.1
[2021-01-12] MEDS: SNACK - Diabetic Appropriate PO SCH (20:00)
[2021-01-12] MEDS: COREG TAB 3.125 MG PO SCH (20:24)
[2021-01-12] MEDS ORDERED: LIPITOR TAB 40 MG PO SCH (21:00)
[2021-01-13 06:38] LABS: BASOPHILS % (AUTO) 0.6 % (0.2-1.0); EOSINOPHILS # (AUTO) 0.2 x10^3/uL (0.0-0.2); EOSINOPHILS % (AUTO) 2.4 % (0.9-2.9); HEMATOCRIT 29.2 % (42.0-54.0); HEMOGLOBIN 9.2 g/dL (13.5-18.0); LYMPHOCYTES # (AUTO) 1.6 X10^3/uL (1.3-2.9); LYMPHOCYTES % (AUTO) 20.1 % (21.0-51.0); MEAN CORPUSCULAR HEMOGLOBIN 26.9 pg (27.0-34.0); MEAN CORPUSCULAR HGB CONC 31.5 g/dL (33.0-35.0); MEAN CORPUSCULAR VOLUME 85.5 fL (80.0-100.0); MEAN PLATELET VOLUME 8.3 fL (7.4-11.0); MONOCYTES # (AUTO) 0.8 x10^3/uL (0.3-0.8); MONOCYTES % (AUTO) 10.6 % (0.0-13.0); NEUTROPHILS # (AUTO) 5.1 x10^3/uL (2.2-4.8); NEUTROPHILS % (AUTO) 66.3 % (42.0-75.0); PLATELET COUNT 171 X10^3/uL (150.0-450.0); RED BLOOD COUNT 3.41 X10^6/uL (4.7-6.0); RED CELL DISTRIBUTION WIDTH 18.2 % (11.6-16.5); WHITE BLOOD COUNT 7.7 X10^3/uL (3.6-10.0)
[2021-01-13 06:39] LABS: ALBUMIN 3.1 g/dL (3.4-5.0); CALCIUM 7.9 mg/dL (8.5-10.1); CARBON DIOXIDE 26.3 mmol/L (21-32); COR CA(FOR HYPOALB) 8.6 mg/dL (8.5-10.1); CREATININE 2.7 mg/dL (0.70-1.30); TOTAL PROTEIN 6.3 g/dL (6.4-8.2)
[2021-01-13 08:36] VITALS: BP 145/80
[2021-01-13] MEDS: NS 1000 ML 1,000 ML IV SCH ×2 (08:49→11:29)
[2021-01-13] MEDS: ROCEPHIN 1 GRAM IV PREMIX 1 G/50 ML IV.SOLN. IV SCH (08:50)
[2021-01-13] MEDS: MILK OF MAGNESIA PO SCH (08:52)
[2021-01-13] MEDS: MIRALAX POWDER (1 DOSE 17 G) PO SCH (08:52)
[2021-01-13] MEDS: LANOXIN or DIGITEK PO SCH (08:53)
[2021-01-13] MEDS: SYNTHROID 50 mcg TAB PO SCH (08:56)
[2021-01-13] MEDS: SENOKOT PO SCH (08:57)
[2021-01-13] MEDS: COREG TAB 3.125 MG PO SCH (08:57)
[2021-01-13] MEDS ORDERED: COZAAR PO SCH (09:00)
[2021-01-13] MEDS ORDERED: MAALOX or MYLANTA PO PRN (09:02)
== END 2021-01-13 12:05 | disposition home health service (06) ==
LOC: ER 06:25 → MED/SURG 06:25
PROVIDERS: ADMIT Internal Medicine; ATTEND Internal Medicine
DX: K59.00 Constipation, unspecified; R94.31 Abnormal electrocardiogram [ECG] [EKG]; Z20.822 Contact with and (suspected) exposure to COVID-19; B96.89 Other specified bacterial agents as the cause of diseases classified elsewhere; R10.9 Unspecified abdominal pain; E86.0 Dehydration; K56.7 Ileus, unspecified; N30.01 Acute cystitis with hematuria; Z90.5 Acquired absence of kidney; R26.81 Unsteadiness on feet